=== PATIENT | female | born 1940 | race Caucasian/White ===

== ENCOUNTER 2017-09-01 10:09 | Day surgery (SDC) | payer MEDICARE ==
[2017-08-29 08:42] VITALS: BMI 29.4
[2017-09-01] MEDS ORDERED: Bupivacaine 0.25% HCL 30 ML VIAL ONE (10:50)
[2017-09-01] MEDS ORDERED: Lidocaine 2% w/Epinephrine 1:200K 20 ML VIAL ONE (10:50)
[2017-09-01] MEDS ORDERED: CEFAZOLIN/Water 2 GM/20 ML SYRINGE ONE (11:13)
[2017-09-01] MEDS ORDERED: Fentanyl 100 MCG/2 ML VIAL ONE (11:33)
[2017-09-01] MEDS ORDERED: Lidocaine 1% PF 5 ML VIAL ONE (12:32)
[2017-09-01] MEDS ORDERED: Ondansetron HCl/PF 4 MG/2 ML Vial ONE (12:32)
[2017-09-01] MEDS ORDERED: Propofol 200 MG/20 ML VIAL ONE (12:32)
--- NOTE | 2017-09-01 13:25 | OP ---
DATE OF PROCEDURE: 09/01/2017 PREOPERATIVE DIAGNOSIS: Multiple myeloma. POSTOPERATIVE DIAGNOSIS: Multiple myeloma. PROCEDURE: Tunneled central line subcutaneous port (MediPort, CT injectable). SURGEON: Carmine Pacheco M.D. ANESTHESIA: General. ESTIMATED BLOOD LOSS: Minimal. COMPLICATIONS: None. SPECIMEN: None. FINDINGS: Tip of catheter at atriocaval junction. TECHNIQUE: The patient was taken to the operating room and placed supine on the table. After genera l anesthetic was obtained, bilateral neck and chest were prepped and draped in a sterile fashion. Lo long anesthetic infiltrated over the right internal jugular vein. Intrajugular vein cannulated using a 22-gauge finder needle followed by a Seldinger needle. Wire was passed into the superior vena cava under fluoroscopic guidance. A small vimal was made at the wire entrance site. A separate 3-cm inci bettie was made in the right upper chest. Subcutaneous pocket made below the lower incision. Tubing f or the MediPort tunneled from the inferior to superior incision. Introducer sheath was placed over t he wire into the superior vena cava under fluoroscopic guidance. The dilator and wire were removed. The end of catheter was threaded into the sheath as the sheath is peeled away. The tip of the jorge l ter was at the atriocaval junction. MediPort tubing was cut to fit the MediPort at the lower incisio n and connected to the MediPort. The MediPort was sewn to the chest wall and subcutaneous pocket usi ng Prolene. The MediPort flushes and draws blood without difficulty. It is flushed with heparin flu sh. All incisions were irrigated and closed using 3-0 Vicryl, 4-0 Monocryl, and Dermabond. The lobito ent was en route to recovery in stable condition. All instrument counts, needle counts, and lap coun ts were correct.
--- NOTE | 2017-09-01 14:08 | RAD ---
FRONTAL VIEW CHEST: Date: 09/01/17 INDICATION: MediPort placement. Rule out pneumothorax. FINDINGS: No significant pneumothorax is seen. There is a partially imaged right venous chest port with tip ter minating in SVC region. There is interstitial prominence of each lung. Cardiac silhouette is accentua saulo by portable technique. Vascular calcification and osseous degenerative change present. IMPRESSION: 1. No significant postprocedural pneumothorax is seen. 2. Right chest port in place with tip overlying SVC region. POS: [facility]
== END 2017-09-01 13:58 | disposition home or self-care (01) ==
LOC: SDC 10:09
PROVIDERS: ATTEND Surgery
PROC: 0JH63WZ Insertion of Totally Implantable Vascular Access Device into Chest Subcutaneous Tissue and Fascia, Percutaneous Approach (ICD-10-PCS; principal; 2017-09-01)
DX: C90.00 Multiple myeloma not having achieved remission (principal); C79.51 Secondary malignant neoplasm of bone; M85.80 Other specified disorders of bone density and structure, unspecified site; E78.5 Hyperlipidemia, unspecified; Z90.49 Acquired absence of other specified parts of digestive tract; Z98.51 Tubal ligation status; Z87.01 Personal history of pneumonia (recurrent); Z80.0 Family history of malignant neoplasm of digestive organs
CPT/HCPCS: 36561; 71045; C1788; J1642; J2001; J2405; J2704; J3010; S0020

== ENCOUNTER 2018-10-20 17:45 | Inpatient (IN) | payer MEDICARE ==
[2018-10-20] MEDS ORDERED: Sodium Chloride 0.9% 20 ML ONE (18:20)
[2018-10-20] MEDS: NS 0.9% w/ 20 MEQ KCL 1,000 ML IV SCH ×2 (19:00→19:30)
[2018-10-20] MEDS: Cefepime 2 GM in Sodium Chloride 0.9% 100 ML IVPB SCH (19:29)
[2018-10-20 19:38] VITALS: BMI 28.2
[2018-10-20] MEDS ORDERED: Zolpidem Tartrate 5 MG TAB PO PRN (23:25)
[2018-10-20] MEDS ORDERED: Morphine 2 MG/ML SYRINGE SLOW IVP PRN (23:36)
[2018-10-20] MEDS ORDERED: Fioricet 325/50/40 mg Tablet PO PRN (23:36)
--- NOTE | 2018-10-20 23:45 | PDOC.EVN ---
Event Note - Event Note Event Note: H&P [id number]
[2018-10-20] MEDS: Acetaminophen 325 MG TAB PO PRN (23:50)
[2018-10-21] MEDS: Cefepime 2 GM in Sodium Chloride 0.9% 100 ML IVPB SCH ×3 (03:05→20:47)
--- NOTE | 2018-10-21 03:36 | HP ---
CHIEF COMPLAINT: Fever and chills. HISTORY OF PRESENT ILLNESS: This is a 78-year-old female with past medical history of multiple myeloma, presenting to the hospital after having failed outpatient treatment therapy for severe sepsis. The patient of note was treated with Levaquin for 5 days, did not have any resolution of her symptoms. The patient was complaining of cough, fevers and chills, saw her oncologist, Dr. Jama, who sent her to the hospital for neutropenic fever. The patient at point in time of admission states that she is still having the cough, was admitting to fever as well as some headaches. The patient states that she has some dyspnea on ambulation as well as mild chills. Denies any other associated symptoms or complaints. No other alleviating or aggravating factors noted. The patient was seen and examined in the hospital bed at bedside. No family at bedside. All questions answered. ALLERGIES: NO KNOWN DRUG ALLERGIES. MEDICATIONS: See MAR. PAST MEDICAL HISTORY: Multiple myeloma as well as hypertension. FAMILY HISTORY: Noncontributory. SOCIAL HISTORY: Nondrinker, nonsmoker. REVIEW OF SYSTEMS: All systems reviewed. Pertinent positives in HPI, otherwise negative. PHYSICAL EXAMINATION: VITAL SIGNS: Blood pressure 143/63, O2 saturations 97% on room air, heart rate of 97, temperature of 97.8, respiratory rate of 18. GENERAL: The patient is lying in bed, in no acute discomfort. HEENT: Pupils are equal, round, and reactive to light and accommodation. Extraocular muscles are intact. Oral cavity is moist and pink. NECK: Supple, mobile, nontender. Thyroid appreciated. CARDIOVASCULAR: Regular rate and rhythm. S1 and S2. No murmurs, rubs, or gallops appreciated. PULMONARY: Clear to auscultation bilaterally. No respiratory distress. ABDOMEN: Positive bowel sounds. Soft, nontender, nondistended. EXTREMITIES: 2+ peripheral pulses are noted. Trace edema noted. NEUROLOGIC: Cranial nerves 2 through 12 are intact. No loss of motor function or sensory function. LABORATORY DATA: The patient has not had any recent lab work. ASSESSMENT: 1. Cough, fevers, chills, sepsis. 2. Neutropenic fever. 3. Multiple myeloma. 4. Hypertension. PLAN: At this point in time, we will admit the patient to internal medicine team. Start the patient on cefepime and fluids. The patient apparently had blood work done at her oncologist office who is going to fax the blood work here, has not done so, but per discussion with the doctor who took the admitting report, the patient did have neutropenia as well as fever. So this appears to be likely neutropenic fever. We will start the patient on cefepime, we will also obtain blood cultures. The patient wishes to remain a full code. Continue home blood pressure medication. Norvasc to be held if the blood pressure is less than systolic 120. Pain medications p.r.n., sleep medications p.r.n., lab work in the morning. Resume regular diet. Activity as tolerated with assistance as needed. Case and plan were discussed with the patient at length. She understood and agreed with this plan. Job ID: [id number]
[2018-10-21] MEDS ORDERED: Benzonatate 100 MG CAP PO PRN (04:09)
[2018-10-21] MEDS: Acetaminophen 325 MG TAB PO PRN (04:34)
[2018-10-21] MEDS: NS 0.9% w/ 20 MEQ KCL 1,000 ML IV SCH ×2 (04:39→17:47)
[2018-10-21 05:29] LABS: Anion Gap 10 mmol/L (10-20); BUN (Urea Nitrogen) 13 mg/dL (9.8-20.1); Calc. Creatinine Clearance 63 mL/min (70-130); Calcium 8.4 mg/dL (7.8-10.44); Carbon Dioxide 25 mmol/L (23-31); Chloride 108 mmol/L (98-107); Estimated GFR-MDRD 66; Glucose 91 mg/dL (83-110); Potassium 3.9 mmol/L (3.5-5.1); Sodium 139 mmol/L (136-145)
[2018-10-21 05:34] LABS: Eosinophils 4 % (0-10); Hemoglobin 10.1 g/dL (12.0-16.0); Lymphocytes 42 % (21-51); MDiff Complete? YES; Mean Corpuscular HGB CONC 32.2 g/dL (32.0-36.0); Mean Corpuscular Hemoglobin 31.9 pg (27.0-31.0); Mean Corpuscular Volume 99.1 fL (78.0-98.0); Mean Platelet Volume 8.3 fL (7.4-10.4); Monocytes 21 % (0-10); Neutrophil 25 % (42-75); Platelet Count 138 thou/uL (130-400); RBC Distribution Width 12.7 % (11.5-14.5); Reactive Lymphocytes 8 % (0-10); Red Blood Cell (RBC) Count 3.16 mill/uL (4.20-5.40); Tear Drops SLIGHT = 2-5 cells (100X) (0-1/hpf); White Blood Cell (WBC) Count 1.1 thou/uL (4.8-10.8)
[2018-10-21] MEDS ORDERED: Sodium Chloride 0.65% Nasal 44 ML BOT EA NARE PRN (07:00)
[2018-10-21] MEDS ORDERED: Loperamide HCl 2 MG CAP PO PRN (07:00)
[2018-10-21] MEDS ORDERED: Ondansetron ODT 4 MG TAB PO PRN (07:00)
[2018-10-21] MEDS ORDERED: Artificial Tears 18 DROP/0.9 ML EA EYE PRN (07:00)
[2018-10-21] MEDS ORDERED: Loratadine 10 MG TAB PO PRN (07:00)
[2018-10-21] MEDS ORDERED: Calcium Carbonate 500 MG ChewTAB PO PRN (07:00)
[2018-10-21] MEDS ORDERED: HYDROcodone/Acetaminophen 5/325 mg Tablet PO PRN (07:00)
[2018-10-21] MEDS ORDERED: Cepastat Lozenges 1 LOZ PO PRN (07:00)
[2018-10-21] MEDS ORDERED: Acetaminophen 500 MG TAB PO PRN (07:00)
[2018-10-21] MEDS ORDERED: Eucerin (Mineral Oil/Petrolatum,White) 30 gm Jar TOP PRN (07:00)
[2018-10-21] MEDS ORDERED: Bisacodyl 5 MG TAB PO PRN (07:00)
[2018-10-21] MEDS: Aspirin 81 mg Enteric Coated Tablet PO SCH (10:07)
[2018-10-21] MEDS: Famotidine 20 MG TAB PO SCH ×2 (10:07→20:48)
[2018-10-21] MEDS: Enoxaparin Sodium 40 MG/0.4 ML SYRINGE SC SCH (10:08)
[2018-10-21] MEDS: Amlodipine 5 MG TAB PO SCH (10:11)
--- NOTE | 2018-10-21 10:32 | RAD ---
PA AND LATERAL CHEST: HISTORY: Cough and fever. COMPARISON: 09/01/2017 FINDINGS: The heart size is normal. The aorta is tortuous. A right-sided Port-A-Cath is present. No focal ar eas of consolidation, pneumothoraces, or pleural effusions are seen. There are degenerative changes in the spine. IMPRESSION: No acute process. POS: [facility]
--- NOTE | 2018-10-21 10:43 | PDOC.PN ---
- Subjective Encounter Start Date: 10/21/18 Encounter Start Time: 07:20 -: old records requested/rev pt has cough, wheezing, dyspnea Patient seen and examined. No overnight events - Objective MAR Reviewed: Yes Vital Signs & Weight: Vital Signs (12 hours) Temp Pulse Resp BP BP Pulse Ox 10/21/18 10:14 97.3 F L 69 20 135/60 98 10/21/18 10:11 69 135/60 10/21/18 03:18 97.7 F 74 16 159/68 H 94 L 10/20/18 23:34 98.3 F 96 16 143/63 H 93 L 10/20/18 23:09 92 18 93 L Weight Weight 154 lb 5 oz Result Diagrams: 10/21/18 05:00 10/21/18 05:00 Radiology Reviewed by me: Yes (chest xray reviewed) Phys Exam - Physical Examination Constitutional: NAD HEENT: PERRLA, moist MMs, sclera anicteric Neck: no JVD, supple Respiratory: no rales, wheezing present Cardiovascular: RRR, no significant murmur, no rub Gastrointestinal: soft, non-tender, no distention, positive bowel sounds Musculoskeletal: no edema, pulses present Neurological: non-focal, normal sensation, moves all 4 limbs Lymphatic: no nodes Psychiatric: normal affect, A&O x 3 Skin: no rash, normal turgor Dx/Plan (1) Acute bronchitis Code(s): J20.9 - ACUTE BRONCHITIS, UNSPECIFIED Status: Acute (2) Neutropenic fever Code(s): D70.9 - NEUTROPENIA, UNSPECIFIED; R50.81 - FEVER PRESENTING WITH CONDITIONS CLASSIFIED ELSEWHERE Status: Acute (3) Hypertension Code(s): I10 - ESSENTIAL (PRIMARY) HYPERTENSION Status: Chronic (4) Multiple myeloma Code(s): C90.00 - MULTIPLE MYELOMA NOT HAVING ACHIEVED REMISSION Status: Chronic - Plan cont current plan of care, continue antibiotics, respiratory therapy * add pulmicort nebs bid * increase duoneb * add mucinex * continue cefepime * continue IVF * medication reviewed as below * symptomatic treatment. * check respi viral panel Review of Systems - Review of Systems Constitutional: negative: fever, chills, sweats, weakness, malaise, other Eyes: negative: Pain, Vision Change, Conjunctivae Inflammation, Eyelid Inflammation, Redness, Other ENT: negative: Ear Pain, Ear Discharge, Nose Pain, Nose Discharge, Nose Congestion, Mouth Pain, Mouth Swelling, Throat Pain, Throat Swelling, Other Respiratory: Cough, Shortness of Breath, Wheezing. negative: Dry, Hemoptysis, SOB with Excertion, Pleuritic Pain, Sputum Cardiovascular: negative: chest pain, palpitations, orthopnea, paroxysmal nocturnal dyspnea, edema, light headedness, other Gastrointestinal: negative: Nausea, Vomiting, Abdominal Pain, Diarrhea, Constipation, Melena, Hematochezia, Other Genitourinary: negative: Dysuria, Frequency, Incontinence, Hematuria, Retention , Other Musculoskeletal: negative: Neck Pain, Shoulder Pain, Arm Pain, Back Pain, Hand Pain, Leg Pain, Foot Pain, Other Skin: negative: Rash, Lesions, [place], Bruising, Other - Medications/Allergies Allergies/Adverse Reactions: Allergies Allergy/AdvReac Type Severity Reaction Status Date / Time No Known Allergies Allergy Verified 10/20/18 20:39 Medications: Current Medications Acetaminophen (Tylenol) 500 mg PO Q6H PRN PRN Reason: Mild Pain (1-3) Acetaminophen/Butalbital/Caffeine (Fioricet) 1 tab PO Q4H PRN PRN Reason: Headache Stop: 10/25/18 23:37 Last Admin: 10/21/18 00:04 Dose: 1 tab Hydrocodone Bitart/Acetaminophen ([place] 5/325) 1 tab PO Q4H PRN PRN Reason: Moderate Pain (4-6) Albuterol/Ipratropium (Duoneb) 3 ml NEB [id number] PRN PRN Reason: SOB &/or Wheezing Albuterol/Ipratropium (Duoneb) 3 ml NEB [id number] [facility] Amlodipine Besylate (Norvasc) 5 mg PO DAILY [facility] Last Admin: 10/21/18 10:11 Dose: 5 mg Artificial Tears (Tears Naturale) 2 drop EA EYE PRN PRN PRN Reason: Dry Eyes Aspirin (Ecotrin) 81 mg PO DAILY [facility] Last Admin: 10/21/18 10:07 Dose: 81 mg Benzonatate (Tessalon) 100 mg PO Q8H PRN PRN Reason: Cough Last Admin: 10/21/18 04:32 Dose: 100 mg Bisacodyl (Dulcolax) 10 mg PO DAILYPRN PRN PRN Reason: Constipation Budesonide (Pulmicort Neb Solution) 0.5 mg INH BID-RT [facility] Calcium Carbonate (Tums) 1,000 mg PO Q4H PRN PRN Reason: Heartburn or Indigestion Enoxaparin Sodium (Lovenox) 40 mg SC 0900 [facility] Last Admin: 10/21/18 10:08 Dose: 40 mg Famotidine (Pepcid) 20 mg PO BID [facility] Last Admin: 10/21/18 10:07 Dose: 20 mg Guaifenesin (Robitussin Sf) 200 mg PO Q4H PRN PRN Reason: Cough Guaifenesin (Mucinex) 600 mg PO Q12HR [facility] Hydralazine HCl (Apresoline) 10 mg SLOW IVP Q4H PRN PRN Reason: SBP > 180 and HR < 70 Potassium Chloride/Sodium Chloride (Ns 0.9% W/ 20 Meq Kcl) 1,000 mls @ 100 mls/ hr IV .Q10H [facility] Last Admin: 10/21/18 04:39 Dose: 1,000 mls Cefepime HCl 2 gm/ Sodium (Chloride) 100 mls @ 200 mls/hr IVPB 0400,1200,2000 [facility] Last Admin: 10/21/18 03:05 Dose: 100 mls Loperamide HCl (Imodium) 2 mg PO PRN PRN PRN Reason: Diarrhea/Loose Stools Loratadine (Claritin) 10 mg PO DAILYPRN PRN PRN Reason: Sinus Symptoms Mineral Oil/White Petrolatum (Eucerin Cream) 0 gm TOP BIDPRN PRN PRN Reason: Dry Skin Morphine Sulfate (Morphine) 2 mg SLOW IVP Q4H PRN PRN Reason: Pain Ondansetron HCl (Zofran) 4 mg IVP Q6H PRN PRN Reason: Nausea/Vomiting Ondansetron HCl (Zofran Odt) 4 mg PO Q6H PRN PRN Reason: Nausea/Vomiting Sodium Chloride (Flush - Normal Saline) 10 ml IVF Q12HR PRN PRN Reason: Saline Flush Sodium Chloride ([place] Nasal [place] 0.65%) 0 ml EA NARE QIDPRN PRN PRN Reason: Nasal Congestion Throat Lozenges (Cepastat Lozenges) 1 dennise PO Q2H PRN PRN Reason: Sore Throat Zolpidem Tartrate (Ambien) 5 mg PO HSPRN PRN PRN Reason: Insomnia
--- NOTE | 2018-10-21 11:41 | CON ---
DATE OF CONSULTATION: REASON FOR CONSULT: Neutropenic fever. HISTORY OF PRESENT ILLNESS: Ms. Da Silva is a pleasant 78-year-old female with a history of multiple myeloma, recently started on Darzalex chemotherapy. She complains of a 5-to 6-day history of cough, fever, and chills. She was started on Levaquin 750 mg orally at the end of last week. She returned for a visit to see Dr. Jama yesterday in the clinic. She continued to have productive cough, sore throat, and intermittent fever. She was wheezing on exam. She had a poor oral intake. She had lost 10 pounds in the past week. Patient has chronic neutropenia with a baseline WBC around 3.0, ANC 0.5. Her CBC at the office showed WBC 1.3, ANC 0.5. She was admitted for IV fluids and IV antibiotics. Currently, she complains of cough and weakness. Denies any chest pain. No GI complaints other than poor appetite. She has been started on cefepime and IV fluids. PAST MEDICAL HISTORY: IgG kappa multiple myeloma. PAST SURGICAL HISTORY: 1. Tubal ligation. 2. Appendectomy. ALLERGIES: NO KNOWN DRUG ALLERGIES. HOME MEDICATIONS: 1. Amlodipine 5 mg daily. 2. Aspirin 81 mg daily. 3. Pomalyst 3 mg daily. FAMILY HISTORY: Noncontributory. SOCIAL HISTORY: , has 3 children. Lives with her spouse. No alcohol, tobacco, or illicit drug use. REVIEW OF SYSTEMS: Ten-point review of systems is negative except for noted in HPI. PHYSICAL EXAMINATION: VITAL SIGNS: Temperature 97.7, pulse is 74, respiratory rate 16, BP is 159/68, and she is 94% on room air. GENERAL: Well-developed, well-nourished female, looks acutely ill. HEENT: Normocephalic and atraumatic. Pupils are equal and reactive to light. NECK: Supple. CARDIOVASCULAR: Regular rate and rhythm. LUNGS: She has wheezes and rhonchi throughout. ABDOMEN: Soft and nontender. Bowel sounds are positive. EXTREMITIES: No clubbing, cyanosis, or edema. SKIN: No rash. HEMATOLOGICAL: No petechiae or purpura. NEUROLOGIC: Nonfocal. PSYCH: The patient is alert, oriented and appropriate. PERTINENT LABORATORY AND X-RAYS: Current WBCs 1.1, hemoglobin 10.1, hematocrit 31.3, platelet count is 138,000, 25% neutrophils, 40% lymphocytes. Sodium is 139, potassium 3.9, chloride 108, CO2 is 25, BUN is 13, creatinine 0.84, and calcium is 8.4. ASSESSMENT: 1. Neutropenic fever. 2. Multiple myeloma on Darzalex and Pomalyst chemo. 3. Chronic leukopenia from #2. DISCUSSION: The patient has been started on IV antibiotics and IV fluids. No chest x-ray has been done. We will have that ordered for this morning. Her oxygen saturation is 93%. We will continue p.r.n. nebs and O2. Hopefully, she will improve in the next 24 hours. We will follow her hospital course closely. Thank you for the consult. Job ID: [id number] BERNARDA
[2018-10-21] MEDS: Diabetic Tussin 200 MG/10 ML UDCUP PO PRN ×2 (13:29→17:46)
[2018-10-21] MEDS: Budesonide 0.5 MG/2 ML NEB INH SCH (18:26)
[2018-10-21] MEDS: guaiFENesin ER 600 MG TAB PO SCH (20:56)
[2018-10-22] MEDS: NS 0.9% w/ 20 MEQ KCL 1,000 ML IV SCH (04:31)
[2018-10-22] MEDS: Ondansetron PF 4 MG/2 ML Vial IVP PRN ×2 (04:31→10:56)
[2018-10-22] MEDS: hydrALAZINE 20 MG/ML VIAL SLOW IVP PRN (04:32)
[2018-10-22] MEDS: Cefepime 2 GM in Sodium Chloride 0.9% 100 ML IVPB SCH ×3 (04:34→20:28)
[2018-10-22 05:14] LABS: ALT (SGPT) 13 U/L (8-55); AST (SGOT) 18 U/L (5-34); Albumin 3.4 g/dL (3.4-4.8); Alkaline Phosphatase 57 U/L (40-150); Anion Gap 10 mmol/L (10-20); BUN (Urea Nitrogen) 8 mg/dL (9.8-20.1); Bilirubin, Total 0.3 mg/dL (0.2-1.2); Calc. Creatinine Clearance 70 mL/min (70-130); Calcium 8.4 mg/dL (7.8-10.44); Carbon Dioxide 26 mmol/L (23-31); Chloride 109 mmol/L (98-107); Estimated GFR-MDRD 74; Globulin 1.8 g/dL (2.4-3.5); Glucose 92 mg/dL (83-110); Protein, Total 5.2 g/dL (6.0-8.3); Sodium 141 mmol/L (136-145)
[2018-10-22 05:27] LABS: Hemoglobin 9.8 g/dL (12.0-16.0); Mean Corpuscular HGB CONC 32.5 g/dL (32.0-36.0); Mean Corpuscular Volume 98.6 fL (78.0-98.0); Mean Platelet Volume 8.3 fL (7.4-10.4); Platelet Count 126 thou/uL (130-400); RBC Distribution Width 12.7 % (11.5-14.5); Red Blood Cell (RBC) Count 3.07 mill/uL (4.20-5.40)
[2018-10-22 05:28] LABS: Band 7 % (5-11); Eosinophils 5 % (0-10); Lymphocytes 46 % (21-51); MDiff Complete? YES; Monocytes 16 % (0-10); Neutrophil 26 % (42-75)
[2018-10-22] MEDS: Budesonide 0.5 MG/2 ML NEB INH SCH ×2 (06:49→19:40)
[2018-10-22] MEDS: Amlodipine 5 MG TAB PO SCH ×2 (09:40→20:28)
[2018-10-22] MEDS: Famotidine 20 MG TAB PO SCH ×2 (09:40→20:28)
[2018-10-22] MEDS: Aspirin 81 mg Enteric Coated Tablet PO SCH (09:40)
[2018-10-22] MEDS: Saccharomyces boulardii 250 MG CAP PO SCH (09:40)
[2018-10-22] MEDS: Enoxaparin Sodium 40 MG/0.4 ML SYRINGE SC SCH (09:41)
[2018-10-22] MEDS: Doxycycline 100 MG CAP PO SCH ×2 (09:41→20:28)
[2018-10-22] MEDS: Oseltamivir 75 MG CAP PO SCH ×2 (09:42→20:29)
[2018-10-22] MEDS: guaiFENesin ER 600 MG TAB PO SCH ×2 (09:42→20:29)
--- NOTE | 2018-10-22 09:42 | PDOC.PN ---
- Subjective Encounter Start Date: 10/22/18 Encounter Start Time: 07:30 pt has cough, and wheezing, no fever Patient seen and examined. No overnight events - Objective MAR Reviewed: Yes Vital Signs & Weight: Vital Signs (12 hours) Temp Pulse Resp BP BP BP Pulse Ox 10/22/18 07:59 97 10/22/18 04:32 78 197/86 H 10/22/18 04:00 97.5 F L 75 16 197/86 H 94 L 10/21/18 23:32 98.3 F 82 16 185/77 H 96 Weight Admit Weight 154 lb 5 oz Weight 154 lb 5 oz I&O: 10/21/18 10/22/18 10/23/18 06:59 06:59 06:59 Intake Total 2100 Balance 2100 Result Diagrams: 10/22/18 04:40 10/22/18 04:40 Phys Exam - Physical Examination Constitutional: NAD HEENT: PERRLA, moist MMs, sclera anicteric Neck: no JVD, supple Respiratory: no rales, wheezing present Cardiovascular: RRR, no significant murmur, no rub Gastrointestinal: soft, non-tender, no distention, positive bowel sounds Musculoskeletal: no edema, pulses present Neurological: non-focal, normal sensation Lymphatic: no nodes Psychiatric: normal affect Skin: no rash, normal turgor Dx/Plan (1) Acute bronchitis Code(s): J20.9 - ACUTE BRONCHITIS, UNSPECIFIED Status: Acute (2) Neutropenic fever Code(s): D70.9 - NEUTROPENIA, UNSPECIFIED; R50.81 - FEVER PRESENTING WITH CONDITIONS CLASSIFIED ELSEWHERE Status: Acute (3) Hypertension Code(s): I10 - ESSENTIAL (PRIMARY) HYPERTENSION Status: Chronic (4) Multiple myeloma Code(s): C90.00 - MULTIPLE MYELOMA NOT HAVING ACHIEVED REMISSION Status: Chronic (5) Influenza A Code(s): J10.1 - FLU DUE TO OTH IDENT INFLUENZA VIRUS W OTH RESP MANIFEST Status: Acute (6) Pancytopenia due to chemotherapy Code(s): D61.810 - ANTINEOPLASTIC CHEMOTHERAPY INDUCED PANCYTOPENIA Status: Acute - Plan cont current plan of care, continue antibiotics, respiratory therapy * change amlodipine 5 mg po bid * medication reviewed as below * symptomatic treatment * add tamiflu * add doxycycline * add solumedrol * repeat labs tomorrow * continue respiratory therapy. Review of Systems - Review of Systems Constitutional: weakness. negative: fever, chills, sweats, malaise, other Respiratory: Cough, Shortness of Breath, Wheezing. negative: Dry, Hemoptysis, SOB with Excertion, Pleuritic Pain, Sputum Cardiovascular: negative: chest pain, palpitations, orthopnea, paroxysmal nocturnal dyspnea, edema, light headedness, other Gastrointestinal: negative: Nausea, Vomiting, Abdominal Pain, Diarrhea, Constipation, Melena, Hematochezia, Other Genitourinary: negative: Dysuria, Frequency, Incontinence, Hematuria, Retention , Other Musculoskeletal: negative: Neck Pain, Shoulder Pain, Arm Pain, Back Pain, Hand Pain, Leg Pain, Foot Pain, Other - Medications/Allergies Allergies/Adverse Reactions: Allergies Allergy/AdvReac Type Severity Reaction Status Date / Time No Known Allergies Allergy Verified 10/20/18 20:39 Medications: Current Medications Acetaminophen (Tylenol) 500 mg PO Q6H PRN PRN Reason: Mild Pain (1-3) Acetaminophen/Butalbital/Caffeine (Fioricet) 1 tab PO Q4H PRN PRN Reason: Headache Stop: 10/25/18 23:37 Last Admin: 10/21/18 00:04 Dose: 1 tab Hydrocodone Bitart/Acetaminophen ([place] 5/325) 1 tab PO Q4H PRN PRN Reason: Moderate Pain (4-6) Last Admin: 10/21/18 23:42 Dose: 1 tab Albuterol/Ipratropium (Duoneb) 3 ml NEB [id number] PRN PRN Reason: SOB &/or Wheezing Albuterol/Ipratropium (Duoneb) 3 ml NEB [id number] [facility] Last Admin: 10/22/18 06:49 Dose: Not Given Amlodipine Besylate (Norvasc) 5 mg PO DAILY [facility] Last Admin: 10/21/18 10:11 Dose: 5 mg Artificial Tears (Tears Naturale) 2 drop EA EYE PRN PRN PRN Reason: Dry Eyes Aspirin (Ecotrin) 81 mg PO DAILY [facility] Last Admin: 10/21/18 10:07 Dose: 81 mg Benzonatate (Tessalon) 100 mg PO Q8H PRN PRN Reason: Cough Last Admin: 10/21/18 04:32 Dose: 100 mg Bisacodyl (Dulcolax) 10 mg PO DAILYPRN PRN PRN Reason: Constipation Budesonide (Pulmicort Neb Solution) 0.5 mg INH BID-RT [facility] Last Admin: 10/22/18 06:49 Dose: Not Given Calcium Carbonate (Tums) 1,000 mg PO Q4H PRN PRN Reason: Heartburn or Indigestion Doxycycline Hyclate (Vibramycin) 100 mg PO BID [facility] Enoxaparin Sodium (Lovenox) 40 mg SC 0900 [facility] Last Admin: 10/21/18 10:08 Dose: 40 mg Famotidine (Pepcid) 20 mg PO BID [facility] Last Admin: 10/21/18 20:48 Dose: 20 mg Guaifenesin (Robitussin Sf) 200 mg PO Q4H PRN PRN Reason: Cough Last Admin: 10/21/18 17:46 Dose: 200 mg Guaifenesin (Mucinex) 600 mg PO Q12HR [facility] Last Admin: 10/21/18 20:56 Dose: 600 mg Hydralazine HCl (Apresoline) 10 mg SLOW IVP Q4H PRN PRN Reason: SBP > 180 and HR < 70 Last Admin: 10/22/18 04:32 Dose: 10 mg Potassium Chloride/Sodium Chloride (Ns 0.9% W/ 20 Meq Kcl) 1,000 mls @ 100 mls/ hr IV .Q10H [facility] Last Admin: 10/22/18 04:31 Dose: 1,000 mls Cefepime HCl 2 gm/ Sodium (Chloride) 100 mls @ 200 mls/hr IVPB 0400,1200,2000 [facility] Last Admin: 10/22/18 04:34 Dose: 100 mls Loperamide HCl (Imodium) 2 mg PO PRN PRN PRN Reason: Diarrhea/Loose Stools Loratadine (Claritin) 10 mg PO DAILYPRN PRN PRN Reason: Sinus Symptoms Mineral Oil/White Petrolatum (Eucerin Cream) 0 gm TOP BIDPRN PRN PRN Reason: Dry Skin Morphine Sulfate (Morphine) 2 mg SLOW IVP Q4H PRN PRN Reason: Pain Ondansetron HCl (Zofran) 4 mg IVP Q6H PRN PRN Reason: Nausea/Vomiting Last Admin: 10/22/18 04:31 Dose: 4 mg Ondansetron HCl (Zofran Odt) 4 mg PO Q6H PRN PRN Reason: Nausea/Vomiting Oseltamivir Phosphate (Tamiflu) 75 mg PO BID [facility] Stop: 10/26/18 21:01 Saccharomyces Boulardii (Florastor) 250 mg PO DAILY [facility] Sodium Chloride (Flush - Normal Saline) 10 ml IVF Q12HR PRN PRN Reason: Saline Flush Sodium Chloride ([place] Nasal [place] 0.65%) 0 ml EA NARE QIDPRN PRN PRN Reason: Nasal Congestion Throat Lozenges (Cepastat Lozenges) 1 dennise PO Q2H PRN PRN Reason: Sore Throat Zolpidem Tartrate (Ambien) 5 mg PO HSPRN PRN PRN Reason: Insomnia Last Admin: 10/21/18 23:42 Dose: 5 mg
[2018-10-22] MEDS ORDERED: Promethazine HCl 25 MG/ML VIAL SLOW IVP PRN (11:06)
[2018-10-22] MEDS: methylPREDNISolone Sod Succ 40 MG VIAL IVP SCH ×2 (13:13→21:07)
--- NOTE | 2018-10-22 13:31 | PQF ---
CLINICAL DOCUMENTATION IMPROVEMENT CLARIFICATION FORM: ICD-10 Updated PLEASE DO AN ADDENDUM TO THE PROGRESS NOTE WITH ANY DOCUMENTATION UPDATES OR ADDITIONS AND CARRY THROUGH TO DC SUMMARY. THANK YOU. DATE: 10/22/18 ATTN : DR. TORRES Please exercise your independent, professional judgment in responding to the clarification form. Clinical indicators are provided on the bottom of this form for your review Please check appropriate box(s) to clarify if the following diagnosis has been ruled in or ruled out: SEPSIS [ x] Ruled in diagnosis [ x ] Continue to treat [ ] Resolved [ ] Ruled out diagnosis [ ] Other diagnosis [ ] Unable to determine In addition, please specify: Present on Admission (POA): [ x ] Yes [ ] No [ ] Unable to determine For continuity of documentation, please document condition throughout progress notes and discharge summary. Thank You. CLINICAL INDICATORS - SIGNS / SYMPTOMS / LABS H&P: "PRESENTING TO THE HOSPITAL AFTER HAVING FAILED OUTPATIENT TREATMENT THERAPY FOR SEVERE SEPSIS." "THE PATIENT WAS COMPLAINING OF COUGH, FEVERS, AND CHILLS..." ASSESSMENT: "SEPSIS" WBC 1.0 RISKS: FEVERS CHILLS MULTIPLE MYELOMA TREATMENT: IV CEFEPIME (10/20--PRESENT) VIBRAMYCIN (STARTED 10/22) TAMIFLU (STARTED 10/22) BLOOD CULTURES (This form is maintained as a part of the permanent medical record) 2014 [employer]. All Rights Reserved [email or web address] Office: [phone] [facility]
[2018-10-23] MEDS: hydrALAZINE 20 MG/ML VIAL SLOW IVP PRN (00:42)
[2018-10-23] MEDS: Cefepime 2 GM in Sodium Chloride 0.9% 100 ML IVPB SCH ×3 (04:58→20:48)
[2018-10-23] MEDS: methylPREDNISolone Sod Succ 40 MG VIAL IVP SCH ×3 (05:04→21:28)
[2018-10-23] MEDS: Diabetic Tussin 200 MG/10 ML UDCUP PO PRN ×2 (05:51→21:28)
[2018-10-23] MEDS: Budesonide 0.5 MG/2 ML NEB INH SCH ×2 (07:06→19:48)
[2018-10-23] MEDS: Enoxaparin Sodium 40 MG/0.4 ML SYRINGE SC SCH (09:48)
[2018-10-23] MEDS: Amlodipine 5 MG TAB PO SCH ×2 (09:48→20:48)
[2018-10-23] MEDS: Doxycycline 100 MG CAP PO SCH ×2 (09:49→20:49)
[2018-10-23] MEDS: guaiFENesin ER 600 MG TAB PO SCH ×2 (09:49→20:49)
[2018-10-23] MEDS: Saccharomyces boulardii 250 MG CAP PO SCH (09:49)
[2018-10-23] MEDS: Aspirin 81 mg Enteric Coated Tablet PO SCH (09:50)
[2018-10-23] MEDS: Famotidine 20 MG TAB PO SCH ×2 (09:50→20:48)
[2018-10-23] MEDS: Oseltamivir 75 MG CAP PO SCH ×2 (09:50→20:50)
[2018-10-23] MEDS ORDERED: Lisinopril 10 MG TAB PO SCH (10:00)
--- NOTE | 2018-10-23 10:01 | PDOC.PN ---
- Subjective Encounter Start Date: 10/23/18 Encounter Start Time: 07:45 Patient seen and examined. No new complaints. No overnight events pt still has cough and wheezing, she has headache and her BP is elevated - Objective MAR Reviewed: Yes Vital Signs & Weight: Vital Signs (12 hours) Temp Pulse Resp BP BP Pulse Ox 10/23/18 09:54 97.6 F 88 18 170/72 H 96 10/23/18 09:48 88 170/72 H 10/23/18 07:03 85 20 90 L 10/23/18 04:41 97.6 F 105 H 18 160/61 H 95 10/23/18 00:42 89 191/86 H 10/23/18 00:34 97.8 F 89 18 191/86 H 96 Weight Admit Weight 154 lb 5 oz Weight 154 lb 5 oz I&O: 10/22/18 10/23/18 10/24/18 06:59 06:59 06:59 Intake Total 2100 1800 Balance 2100 1800 Result Diagrams: 10/22/18 04:40 10/22/18 04:40 Phys Exam - Physical Examination Constitutional: NAD HEENT: PERRLA, moist MMs, sclera anicteric Neck: no JVD, supple Respiratory: no rales, wheezing present Cardiovascular: RRR, no significant murmur, no rub Gastrointestinal: soft, non-tender, no distention, positive bowel sounds Musculoskeletal: no edema, pulses present Neurological: non-focal, normal sensation, moves all 4 limbs Lymphatic: no nodes Psychiatric: normal affect, A&O x 3 Skin: no rash, normal turgor Dx/Plan (1) Acute bronchitis Code(s): J20.9 - ACUTE BRONCHITIS, UNSPECIFIED Status: Acute (2) Neutropenic fever Code(s): D70.9 - NEUTROPENIA, UNSPECIFIED; R50.81 - FEVER PRESENTING WITH CONDITIONS CLASSIFIED ELSEWHERE Status: Acute (3) Hypertension Code(s): I10 - ESSENTIAL (PRIMARY) HYPERTENSION Status: Chronic (4) Multiple myeloma Code(s): C90.00 - MULTIPLE MYELOMA NOT HAVING ACHIEVED REMISSION Status: Chronic (5) Influenza A Code(s): J10.1 - FLU DUE TO OTH IDENT INFLUENZA VIRUS W OTH RESP MANIFEST Status: Acute (6) Pancytopenia due to chemotherapy Code(s): D61.810 - ANTINEOPLASTIC CHEMOTHERAPY INDUCED PANCYTOPENIA Status: Acute - Plan cont current plan of care, continue antibiotics, respiratory therapy * recheck labs today * continue cefepime and doxycycline * medication reviewed as below * symptomatic treatment * add lisinopril for HTN. Review of Systems - Review of Systems ENT: negative: Ear Pain, Ear Discharge, Nose Pain, Nose Discharge, Nose Congestion, Mouth Pain, Mouth Swelling, Throat Pain, Throat Swelling, Other Respiratory: Cough, Wheezing. negative: Dry, Shortness of Breath, Hemoptysis, SOB with Excertion, Pleuritic Pain, Sputum Cardiovascular: negative: chest pain, palpitations, orthopnea, paroxysmal nocturnal dyspnea, edema, light headedness, other Gastrointestinal: negative: Nausea, Vomiting, Abdominal Pain, Diarrhea, Constipation, Melena, Hematochezia, Other Genitourinary: negative: Dysuria, Frequency, Incontinence, Hematuria, Retention , Other Musculoskeletal: negative: Neck Pain, Shoulder Pain, Arm Pain, Back Pain, Hand Pain, Leg Pain, Foot Pain, Other Skin: negative: Rash, Lesions, [place], Bruising, Other - Medications/Allergies Allergies/Adverse Reactions: Allergies Allergy/AdvReac Type Severity Reaction Status Date / Time No Known Allergies Allergy Verified 10/20/18 20:39 Medications: Current Medications Acetaminophen (Tylenol) 500 mg PO Q6H PRN PRN Reason: Mild Pain (1-3) Acetaminophen/Butalbital/Caffeine (Fioricet) 1 tab PO Q4H PRN PRN Reason: Headache Stop: 10/25/18 23:37 Last Admin: 10/21/18 00:04 Dose: 1 tab Hydrocodone Bitart/Acetaminophen ([place] 5/325) 1 tab PO Q4H PRN PRN Reason: Moderate Pain (4-6) Last Admin: 10/21/18 23:42 Dose: 1 tab Albuterol/Ipratropium (Duoneb) 3 ml NEB [id number] PRN PRN Reason: SOB &/or Wheezing Last Admin: 10/22/18 10:54 Dose: 3 ml Albuterol/Ipratropium (Duoneb) 3 ml NEB [id number] VISHNU Last Admin: 10/23/18 07:03 Dose: 3 ml Amlodipine Besylate (Norvasc) 5 mg PO BID VISHNU Last Admin: 10/23/18 09:48 Dose: 5 mg Artificial Tears (Tears Naturale) 2 drop EA EYE PRN PRN PRN Reason: Dry Eyes Aspirin (Ecotrin) 81 mg PO DAILY ON LICENSE OF [facility] Last Admin: 10/23/18 09:50 Dose: 81 mg Benzonatate (Tessalon) 100 mg PO Q8H PRN PRN Reason: Cough Last Admin: 10/21/18 04:32 Dose: 100 mg Bisacodyl (Dulcolax) 10 mg PO DAILYPRN PRN PRN Reason: Constipation Budesonide (Pulmicort Neb Solution) 0.5 mg INH BID-RT ON LICENSE OF [facility] Last Admin: 10/23/18 07:06 Dose: 0.5 mg Calcium Carbonate (Tums) 1,000 mg PO Q4H PRN PRN Reason: Heartburn or Indigestion Doxycycline Hyclate (Vibramycin) 100 mg PO BID ON LICENSE OF [facility] Last Admin: 10/23/18 09:49 Dose: 100 mg Enoxaparin Sodium (Lovenox) 40 mg SC 0900 ON LICENSE OF [facility] Last Admin: 10/23/18 09:48 Dose: 40 mg Famotidine (Pepcid) 20 mg PO BID ON LICENSE OF [facility] Last Admin: 10/23/18 09:50 Dose: 20 mg Guaifenesin (Robitussin Sf) 200 mg PO Q4H PRN PRN Reason: Cough Last Admin: 10/23/18 05:51 Dose: 200 mg Guaifenesin (Mucinex) 600 mg PO Q12HR ON LICENSE OF [facility] Last Admin: 10/23/18 09:49 Dose: 600 mg Hydralazine HCl (Apresoline) 10 mg SLOW IVP Q4H PRN PRN Reason: SBP > 180 and HR < 70 Last Admin: 10/23/18 00:42 Dose: 10 mg Cefepime HCl 2 gm/ Sodium (Chloride) 100 mls @ 200 mls/hr IVPB 0400,1200,2000 ON LICENSE OF [facility] Last Admin: 10/23/18 04:58 Dose: 100 mls Lisinopril (Zestril) 10 mg PO ONE ON LICENSE OF [facility] Lisinopril (Zestril) 10 mg PO DAILY ON LICENSE OF [facility] Loperamide HCl (Imodium) 2 mg PO PRN PRN PRN Reason: Diarrhea/Loose Stools Loratadine (Claritin) 10 mg PO DAILYPRN PRN PRN Reason: Sinus Symptoms Methylprednisolone Sodium Succinate (Solu-Medrol) 20 mg IVP Q8HR ON LICENSE OF [facility] Last Admin: 10/23/18 05:04 Dose: 20 mg Mineral Oil/White Petrolatum (Eucerin Cream) 0 gm TOP BIDPRN PRN PRN Reason: Dry Skin Morphine Sulfate (Morphine) 2 mg SLOW IVP Q4H PRN PRN Reason: Pain Ondansetron HCl (Zofran) 4 mg IVP Q6H PRN PRN Reason: Nausea/Vomiting Last Admin: 10/22/18 10:56 Dose: 4 mg Ondansetron HCl (Zofran Odt) 4 mg PO Q6H PRN PRN Reason: Nausea/Vomiting Oseltamivir Phosphate (Tamiflu) 75 mg PO BID ON LICENSE OF [facility] Stop: 10/26/18 21:01 Last Admin: 10/23/18 09:50 Dose: 75 mg Promethazine HCl (Phenergan) 12.5 mg SLOW IVP Q6H PRN PRN Reason: Nausea Saccharomyces Boulardii (Florastor) 250 mg PO DAILY ON LICENSE OF [facility] Last Admin: 10/23/18 09:49 Dose: 250 mg Sodium Chloride (Flush - Normal Saline) 10 ml IVF Q12HR PRN PRN Reason: Saline Flush Last Admin: 10/23/18 09:50 Dose: 10 ml Sodium Chloride ([place] Nasal [place] 0.65%) 0 ml EA NARE QIDPRN PRN PRN Reason: Nasal Congestion Throat Lozenges (Cepastat Lozenges) 1 dennise PO Q2H PRN PRN Reason: Sore Throat Zolpidem Tartrate (Ambien) 5 mg PO HSPRN PRN PRN Reason: Insomnia Last Admin: 10/21/18 23:42 Dose: 5 mg
[2018-10-23 10:20] LABS: #Lymphocytes 0.2 thou/uL (1.20-3.40); #Monocytes 0.1 thou/uL (0.11-0.59); #Neutrophils 0.9 thou/uL (1.40-6.50); %Eosinophils 0.4 % (0.0-10.0); %Lymphocytes 18.8 % (21.0-51.0); %Neutrophils 71.7 % (42.0-75.0); Hemoglobin 10.8 g/dL (12.0-16.0); Mean Corpuscular HGB CONC 33.4 g/dL (32.0-36.0); Mean Corpuscular Hemoglobin 31.7 pg (27.0-31.0); Mean Corpuscular Volume 94.9 fL (78.0-98.0); Mean Platelet Volume 8.4 fL (7.4-10.4); Platelet Count 149 thou/uL (130-400); RBC Distribution Width 12.7 % (11.5-14.5); Red Blood Cell (RBC) Count 3.39 mill/uL (4.20-5.40); White Blood Cell (WBC) Count 1.3 thou/uL (4.8-10.8)
[2018-10-23 10:41] LABS: Anion Gap 10 mmol/L (10-20); BUN (Urea Nitrogen) 14 mg/dL (9.8-20.1); Calc. Creatinine Clearance 70 mL/min (70-130); Calcium 9.5 mg/dL (7.8-10.44); Carbon Dioxide 26 mmol/L (23-31); Chloride 106 mmol/L (98-107); Estimated GFR-MDRD 74; Glucose 114 mg/dL (83-110); Potassium 3.9 mmol/L (3.5-5.1); Sodium 138 mmol/L (136-145)
[2018-10-24] MEDS: Cefepime 2 GM in Sodium Chloride 0.9% 100 ML IVPB SCH ×2 (03:08→12:31)
[2018-10-24] MEDS: methylPREDNISolone Sod Succ 40 MG VIAL IVP SCH ×2 (06:02→12:32)
[2018-10-24] MEDS: Budesonide 0.5 MG/2 ML NEB INH SCH (08:00)
[2018-10-24] MEDS ORDERED: Lisinopril 10 MG TAB PO SCH (09:00)
--- NOTE | 2018-10-24 09:03 | PDOC.PN ---
- Subjective Encounter Start Date: 10/24/18 Encounter Start Time: 08:30 Patient seen and examined. No new complaints. No overnight events - Objective MAR Reviewed: Yes Vital Signs & Weight: Vital Signs (12 hours) Temp Pulse Resp BP Pulse Ox 10/24/18 08:00 81 20 10/24/18 04:00 98.4 F 81 18 160/65 H 98 Weight Admit Weight 154 lb 5 oz Weight 154 lb 5 oz I&O: 10/23/18 10/24/18 10/25/18 06:59 06:59 06:59 Intake Total 1800 2500 Balance 1800 2500 Result Diagrams: 10/23/18 09:40 10/23/18 09:40 Phys Exam - Physical Examination Constitutional: NAD HEENT: PERRLA, moist MMs, sclera anicteric Neck: no JVD, supple Respiratory: no wheezing, no rales, no rhonchi Cardiovascular: RRR, no significant murmur, no rub Gastrointestinal: soft, non-tender, no distention, positive bowel sounds Musculoskeletal: no edema, pulses present Neurological: non-focal, normal sensation, moves all 4 limbs Psychiatric: normal affect, A&O x 3 Skin: no rash, normal turgor Dx/Plan (1) Acute bronchitis Code(s): J20.9 - ACUTE BRONCHITIS, UNSPECIFIED Status: Acute (2) Neutropenic fever Code(s): D70.9 - NEUTROPENIA, UNSPECIFIED; R50.81 - FEVER PRESENTING WITH CONDITIONS CLASSIFIED ELSEWHERE Status: Acute (3) Hypertension Code(s): I10 - ESSENTIAL (PRIMARY) HYPERTENSION Status: Chronic (4) Multiple myeloma Code(s): C90.00 - MULTIPLE MYELOMA NOT HAVING ACHIEVED REMISSION Status: Chronic (5) Influenza A Code(s): J10.1 - FLU DUE TO OTH IDENT INFLUENZA VIRUS W OTH RESP MANIFEST Status: Acute (6) Pancytopenia due to chemotherapy Code(s): D61.810 - ANTINEOPLASTIC CHEMOTHERAPY INDUCED PANCYTOPENIA Status: Acute - Plan cont current plan of care, continue antibiotics, respiratory therapy * medication reviewed as below * symptomatic treatment * overall stable and improving * see discharge summery. Review of Systems - Review of Systems ENT: negative: Ear Pain, Ear Discharge, Nose Pain, Nose Discharge, Nose Congestion, Mouth Pain, Mouth Swelling, Throat Pain, Throat Swelling, Other Respiratory: negative: Cough, Dry, Shortness of Breath, Hemoptysis, SOB with Excertion, Pleuritic Pain, Sputum, Wheezing Cardiovascular: negative: chest pain, palpitations, orthopnea, paroxysmal nocturnal dyspnea, edema, light headedness, other Gastrointestinal: negative: Nausea, Vomiting, Abdominal Pain, Diarrhea, Constipation, Melena, Hematochezia, Other Genitourinary: negative: Dysuria, Frequency, Incontinence, Hematuria, Retention , Other Musculoskeletal: negative: Neck Pain, Shoulder Pain, Arm Pain, Back Pain, Hand Pain, Leg Pain, Foot Pain, Other - Medications/Allergies Allergies/Adverse Reactions: Allergies Allergy/AdvReac Type Severity Reaction Status Date / Time No Known Allergies Allergy Verified 10/20/18 20:39 Medications: Current Medications Acetaminophen (Tylenol) 500 mg PO Q6H PRN PRN Reason: Mild Pain (1-3) Acetaminophen/Butalbital/Caffeine (Fioricet) 1 tab PO Q4H PRN PRN Reason: Headache Stop: 10/25/18 23:37 Last Admin: 10/21/18 00:04 Dose: 1 tab Hydrocodone Bitart/Acetaminophen ([place] 5/325) 1 tab PO Q4H PRN PRN Reason: Moderate Pain (4-6) Last Admin: 10/21/18 23:42 Dose: 1 tab Albuterol/Ipratropium (Duoneb) 3 ml NEB [id number] PRN PRN Reason: SOB &/or Wheezing Last Admin: 10/22/18 10:54 Dose: 3 ml Albuterol/Ipratropium (Duoneb) 3 ml NEB [id number] [facility] Last Admin: 10/24/18 08:00 Dose: 3 ml Amlodipine Besylate (Norvasc) 5 mg PO BID [facility] Last Admin: 10/23/18 20:48 Dose: 5 mg Artificial Tears (Tears Naturale) 2 drop EA EYE PRN PRN PRN Reason: Dry Eyes Aspirin (Ecotrin) 81 mg PO DAILY [facility] Last Admin: 10/23/18 09:50 Dose: 81 mg Benzonatate (Tessalon) 100 mg PO Q8H PRN PRN Reason: Cough Last Admin: 10/21/18 04:32 Dose: 100 mg Bisacodyl (Dulcolax) 10 mg PO DAILYPRN PRN PRN Reason: Constipation Budesonide (Pulmicort Neb Solution) 0.5 mg INH BID-RT [facility] Last Admin: 10/24/18 08:00 Dose: 0.5 mg Calcium Carbonate (Tums) 1,000 mg PO Q4H PRN PRN Reason: Heartburn or Indigestion Doxycycline Hyclate (Vibramycin) 100 mg PO BID [facility] Last Admin: 10/23/18 20:49 Dose: 100 mg Enoxaparin Sodium (Lovenox) 40 mg SC 0900 [facility] Last Admin: 10/23/18 09:48 Dose: 40 mg Famotidine (Pepcid) 20 mg PO BID [facility] Last Admin: 10/23/18 20:48 Dose: 20 mg Guaifenesin (Robitussin Sf) 200 mg PO Q4H PRN PRN Reason: Cough Last Admin: 10/23/18 21:28 Dose: 200 mg Guaifenesin (Mucinex) 600 mg PO Q12HR [facility] Last Admin: 10/23/18 20:49 Dose: 600 mg Hydralazine HCl (Apresoline) 10 mg SLOW IVP Q4H PRN PRN Reason: SBP > 180 and HR < 70 Last Admin: 10/23/18 00:42 Dose: 10 mg Cefepime HCl 2 gm/ Sodium (Chloride) 100 mls @ 200 mls/hr IVPB 0400,1200,2000 [facility] Last Admin: 10/24/18 03:08 Dose: 100 mls Lisinopril (Zestril) 10 mg PO DAILY [facility] Loperamide HCl (Imodium) 2 mg PO PRN PRN PRN Reason: Diarrhea/Loose Stools Loratadine (Claritin) 10 mg PO DAILYPRN PRN PRN Reason: Sinus Symptoms Methylprednisolone Sodium Succinate (Solu-Medrol) 20 mg IVP Q8HR [facility] Last Admin: 10/24/18 06:02 Dose: 20 mg Mineral Oil/White Petrolatum (Eucerin Cream) 0 gm TOP BIDPRN PRN PRN Reason: Dry Skin Morphine Sulfate (Morphine) 2 mg SLOW IVP Q4H PRN PRN Reason: Pain Ondansetron HCl (Zofran) 4 mg IVP Q6H PRN PRN Reason: Nausea/Vomiting Last Admin: 10/22/18 10:56 Dose: 4 mg Ondansetron HCl (Zofran Odt) 4 mg PO Q6H PRN PRN Reason: Nausea/Vomiting Last Admin: 10/24/18 03:06 Dose: 4 mg Oseltamivir Phosphate (Tamiflu) 75 mg PO BID [facility] Stop: 10/26/18 21:01 Last Admin: 10/23/18 20:50 Dose: 75 mg Promethazine HCl (Phenergan) 12.5 mg SLOW IVP Q6H PRN PRN Reason: Nausea Saccharomyces Boulardii (Florastor) 250 mg PO DAILY [facility] Last Admin: 10/23/18 09:49 Dose: 250 mg Sodium Chloride (Flush - Normal Saline) 10 ml IVF Q12HR PRN PRN Reason: Saline Flush Last Admin: 10/23/18 09:50 Dose: 10 ml Sodium Chloride ([place] Nasal [place] 0.65%) 0 ml EA NARE QIDPRN PRN PRN Reason: Nasal Congestion Throat Lozenges (Cepastat Lozenges) 1 dennise PO Q2H PRN PRN Reason: Sore Throat Zolpidem Tartrate (Ambien) 5 mg PO HSPRN PRN PRN Reason: Insomnia Last Admin: 10/21/18 23:42 Dose: 5 mg
[2018-10-24] MEDS: Oseltamivir 75 MG CAP PO SCH (09:06)
[2018-10-24] MEDS: Aspirin 81 mg Enteric Coated Tablet PO SCH (09:06)
[2018-10-24] MEDS: Famotidine 20 MG TAB PO SCH (09:06)
[2018-10-24] MEDS: guaiFENesin ER 600 MG TAB PO SCH (09:06)
[2018-10-24] MEDS: Doxycycline 100 MG CAP PO SCH (09:06)
[2018-10-24] MEDS: Enoxaparin Sodium 40 MG/0.4 ML SYRINGE SC SCH (09:06)
[2018-10-24] MEDS: Saccharomyces boulardii 250 MG CAP PO SCH (09:06)
[2018-10-24] MEDS: Amlodipine 5 MG TAB PO SCH (09:08)
[2018-10-24 09:31] VITALS: BP 148/68; TEMP 98.6
--- NOTE | 2018-10-24 10:07 | DIS ---
DATE OF ADMISSION: 10/20/2018 DATE OF DISCHARGE: 10/24/2018 PRIMARY CARE PHYSICIAN: Corky Dang MD DISCHARGE DISPOSITION: Home. PRIMARY DISCHARGE DIAGNOSES: Neutropenic fever, acute bronchitis, influenza A, and pancytopenia due to chemotherapy. SECONDARY DISCHARGE DIAGNOSES: Multiple myeloma and hypertension. PRIMARY PROCEDURES/OPERATION: None. RADIOLOGICAL INVESTIGATION: Chest x-ray, unremarkable. SIGNIFICANT LABORATORY DATA: WBC 1.3, hemoglobin 10.8, and platelets 149. Sodium 138, potassium 3.9, BUN 14, creatinine 0.76, and calcium 9.5. LFT normal. DISCHARGE MEDICATIONS: 1. Aspirin 81 mg daily. 2. Ventolin HFA two puffs q.6 hourly p.r.n. 3. Mucinex 600 mg twice daily for 5 days. 4. Doxycycline 100 mg p.o. b.i.d. for 5 days. 5. Tamiflu 75 mg p.o. b.i.d. for 3 days. 6. Prednisone 20 mg p.o. daily for 5 days. 7. Florastor 250 mg daily for 5 days. 8. Lisinopril 10 mg daily. 9. Amlodipine 5 mg p.o. b.i.d. CONTRAINDICATION: None. CODE STATUS: Full code. INPATIENT LIBRARY CIRCULATION CLERK: Dr. Corky Butler was following while in hospital. TEST RESULT PENDING ON DISCHARGE: None. ALLERGIES: NO KNOWN DRUG ALLERGIES. DISCHARGE PLAN: Posthospital, the patient will follow up with primary care physician and primary oncologist. HOSPITAL COURSE: A 78-year-old female, who was sent from Oncology Clinic. The patient has multiple myeloma and she has received chemotherapy prior to arrival. The patient was having neutropenia and fever. She was also having one week history of upper respiratory infection, which has progressed to bronchitis. Her viral panel positive for influenza A. She was treated with Tamiflu while in hospital. She was also given empiric antibiotic therapy with cefepime and doxycycline. She was also given steroid. With this treatment, the patient's condition significantly improved. The patient is medically stable for discharge today. She will continue above-mentioned medication, and she will follow up with Oncology for further chemotherapy when appropriate. The patient is seen and examined at the bedside today. Please see my progress note from today for further detail. Job ID: [id number]
[2018-10-24 10:11] LABS: #Lymphocytes 0.4 thou/uL (1.20-3.40); #Monocytes 0.2 thou/uL (0.11-0.59); #Neutrophils 1.7 thou/uL (1.40-6.50); %Eosinophils 0.7 % (0.0-10.0); %Monocytes 9.2 % (0.0-10.0); %Neutrophils 72.1 % (42.0-75.0); Mean Corpuscular HGB CONC 33.1 g/dL (32.0-36.0); Mean Corpuscular Hemoglobin 32.3 pg (27.0-31.0); Mean Corpuscular Volume 97.5 fL (78.0-98.0); Mean Platelet Volume 8.6 fL (7.4-10.4); Platelet Count 148 thou/uL (130-400); RBC Distribution Width 12.7 % (11.5-14.5); White Blood Cell (WBC) Count 2.3 thou/uL (4.8-10.8)
[2018-10-24 10:36] LABS: Anion Gap 12 mmol/L (10-20); BUN (Urea Nitrogen) 23 mg/dL (9.8-20.1); Calc. Creatinine Clearance 65 mL/min (70-130); Calcium 8.9 mg/dL (7.8-10.44); Carbon Dioxide 25 mmol/L (23-31); Chloride 106 mmol/L (98-107); Estimated GFR-MDRD 69; Glucose 113 mg/dL (83-110); Sodium 139 mmol/L (136-145)
== END 2018-10-24 14:42 | disposition home or self-care (01) | DRG 871 ==
LOC: ONC 17:45
PROVIDERS: ADMIT Family Medicine; ATTEND Family Medicine
DX: A41.9 Sepsis, unspecified organism (principal); D61.810 Antineoplastic chemotherapy induced pancytopenia; C90.00 Multiple myeloma not having achieved remission; R65.20 Severe sepsis without septic shock; J11.1 Influenza due to unidentified influenza virus with other respiratory manifestations; I10 Essential (primary) hypertension; T45.1X5A Adverse effect of antineoplastic and immunosuppressive drugs, initial encounter; J20.9 Acute bronchitis, unspecified; R50.81 Fever presenting with conditions classified elsewhere; Z90.49 Acquired absence of other specified parts of digestive tract; Z79.82 Long term (current) use of aspirin; Z79.899 Other long term (current) drug therapy
CPT/HCPCS: 36415; 71046; 80048; 80053; 82248; 83615; 84100; 84550; 85007; 85025; 85027; 87040; 87633; 94640; J0360; J0692; J1642; J1650; J2405; J2920; J7050; J7620; J7626; Q0162

== ENCOUNTER 2020-07-25 09:52 | Outpatient (CLI) | payer MEDICARE ==
--- NOTE | 2020-07-25 12:42 | MRI ---
EXAM: MRI right femur with and without IV contrast PROVIDED CLINICAL HISTORY: Pain, history of multiple myeloma COMPARISON: None FINDINGS: Regional marrow signal appears without significant abnormality. Regional muscular signal appears with out significant abnormality. There is no abnormal contrast enhancement evident. The amount of fluid within the right knee joint appears physiologic. No evidence for regional lymph node enlargement. The courses of the regional major neurovascular structures appear unremarkable. IMPRESSION: No evidence for an acute process.
--- NOTE | 2020-07-25 13:05 | MRI ---
EXAM: MRI right hip with and without IV contrast PROVIDED CLINICAL HISTORY: Right hip pain, history of multiple myeloma COMPARISON: MRI right hip 06/20/2015 [facility] FINDINGS: There is a 2.8 cm circumscribed focus of marrow signal alteration within the right medial iliac bone demonstrating partial contrast enhancement. This is in the location of prior signal abnormality on MRI of 06/20/2015, appearing confluent rather than representing two separate lesions on the current s tudy. There is diminished T1 signal intensity and increased T2 signal intensity involving the coccyx with associated contrast enhancement. Regional marrow signal appears otherwise unremarkable. The amount of fluid within the right hip joint appears physiologic. There is conspicuous trochanteric bursal fluid bilaterally, right greater than left. Evaluation of the gluteal tendons on the right is limited due to patient motion on the axial sequence. There is full-thickness partial width tearing involving the anterior fibers of the right gluteus medius tendon at its insertion. There is at least high-grade partial-thickness tearing involving the right gluteus minimus tendon at its insertio n. The left gluteal tendons are not optimally evaluated on this examination as they are only included on wide field of view coronal sequences. The right hamstring, flexor and adductor tendons appear intact. The courses of the regional major abimael rovascular structures appear unremarkable. There is partial fatty infiltration of the right gluteus minimus muscle. Regional muscular signal appears otherwise unremarkable. There is no evidence for reg ional lymph node enlargement. IMPRESSION: 1. Tears of the right gluteus medius and minimus tendons as described. 2. Foci of signal alteration with associated contrast enhancement are seen involving the right medial iliac bone and coccyx, which could reflect myelomatous lesions.
[2020-07-25] MEDS ORDERED: Magnevist 469MG/ML 20 ML VIAL ONE ×2 (13:38)
== END 2020-07-25 09:53 | disposition home or self-care (01) ==
LOC: BICMRI 09:52
PROVIDERS: ATTEND Nurse Practitioner Family
DX: C90.00 Multiple myeloma not having achieved remission (principal); M79.651 Pain in right thigh; M25.551 Pain in right hip; S76.911A Strain of unspecified muscles, fascia and tendons at thigh level, right thigh, initial encounter
CPT/HCPCS: A9579

== ENCOUNTER 2021-03-12 19:10 | Emergency (ER) | payer MEDICARE ==
[2021-03-12 19:42] LABS: Hemoglobin 12.1 g/dL (12.0-16.0); Mean Corpuscular HGB CONC 34.6 g/dL (32.0-36.0); Mean Corpuscular Hemoglobin 33.3 pg (27.0-31.0); Mean Corpuscular Volume 96.3 fL (78.0-98.0); Mean Platelet Volume 7.9 fL (7.4-10.4); Platelet Count 156 thou/uL (130-400); RBC Distribution Width 14.4 % (11.5-14.5); Red Blood Cell (RBC) Count 3.64 mill/uL (4.20-5.40); White Blood Cell (WBC) Count 3.6 thou/uL (4.8-10.8)
[2021-03-12 20:02] LABS: ALT (SGPT) 15 U/L (8-55); AST (SGOT) 17 U/L (5-34); Albumin 4.4 g/dL (3.4-4.8); Alkaline Phosphatase 58 U/L (40-110); Anion Gap 14 mmol/L (10-20); BUN (Urea Nitrogen) 19 mg/dL (9.8-20.1); Bilirubin, Total 0.6 mg/dL (0.2-1.2); Calc. Creatinine Clearance 0 mL/min (70-130); Calcium 9.4 mg/dL (7.8-10.44); Carbon Dioxide 22 mmol/L (23-31); Chloride 107 mmol/L (98-107); Glucose 93 mg/dL (83-110); Potassium 3.9 mmol/L (3.5-5.1); Protein, Total 6.4 g/dL (5.8-8.1); Sodium 139 mmol/L (136-145)
[2021-03-12 20:25] LABS: Band 3 % (5-11); Eosinophils 3 % (0-10); Lymphocytes 15 % (21-51); MDiff Complete? YES; Monocytes 21 % (0-10); Neutrophil 52 % (42-75); Ovalocytes SLIGHT = 2-5 cells (100X) (0-1/hpf); Platelet Morphology Comment Appears Adequate; Polychromasia SLIGHT = 2-3 cells (100X) (0-2/hpf); Reactive Lymphocytes 4 % (0-10)
== END 2021-03-12 23:08 | disposition home or self-care (01) ==
LOC: ERS 19:10
DX: R06.00 Dyspnea, unspecified (principal)
CPT/HCPCS: 36415; 71045; 80053; 83880; 84484; 85025; 93005

== ENCOUNTER 2021-12-13 11:30 | Outpatient (CLI) | payer MEDICARE | END 2021-12-13 11:31 | disposition home or self-care (01) | LOC: SCSMRI 11:30 | PROVIDERS: ATTEND Internal Medicine Hematology & Oncology | DX: M25.551 Pain in right hip (principal); C90.00 Multiple myeloma not having achieved remission ==

== ENCOUNTER 2022-01-07 15:52 | Outpatient (CLI) | payer MEDICARE | END 2022-01-07 15:53 | disposition home or self-care (01) | LOC: ULT 15:52 | PROVIDERS: ATTEND Radiology Radiation Oncology | DX: I82.401 Acute embolism and thrombosis of unspecified deep veins of right lower extremity (principal); M79.604 Pain in right leg; M79.89 Other specified soft tissue disorders ==

== ENCOUNTER 2023-04-02 13:12 | Outpatient (CLI) | payer MEDICARE | END 2023-04-02 13:13 | disposition home or self-care (01) | LOC: RAD 13:12 | PROVIDERS: ATTEND Internal Medicine Hematology & Oncology | DX: R05.9 Cough, unspecified (principal) | CPT/HCPCS: 36415; 71046; 80053; 82248; 83615; 83883; 84100; 84155; 84165; 84550 ==

== ENCOUNTER 2024-02-23 13:16 | Outpatient (CLI) | payer MEDICARE | END 2024-02-23 13:17 | disposition home or self-care (01) | LOC: RAD 13:16 | PROVIDERS: ATTEND Internal Medicine Critical Care Medicine | DX: R06.00 Dyspnea, unspecified (principal); J98.4 Other disorders of lung; I70.0 Atherosclerosis of aorta | CPT/HCPCS: 71046 ==

== ENCOUNTER 2024-04-29 16:58 | Inpatient (IN) | payer MEDICARE ==
[2024-04-29 18:13] LABS: Bacteria/HPF 4+ HPF (None Seen); Bilirubin Negative (Negative); Blood, Urine Negative (Negative); CAUTI Indications for Culture Alt mental st,lethar; Clarity Turbid (Clear); Glucose, Urine (Dipstick) Normal (Negative); Ketone, Urine Negative (Negative); Leukocyte 500 Leu/uL (Negative); Nitrite 2+ (Negative); Protein, Urine (Dipstick) 20 mg/dL (Neg-Trace); RBC/HPF 0-3 HPF (0-3); Specific Gravity, Urine 1.017 (1.002-1.036); Squamous Epithelial 0-3 HPF (0-3); Urobilinogen Normal mg/dL (Less than 2); WBC/HPF Greater than 50 HPF (0-3); pH, Urine 5.5 (5.0-9.0)
[2024-04-29 18:17] LABS: Urine Culture Reflex Yes Yes
[2024-04-29 18:47] LABS: Hemoglobin 9.1 g/dL (12.0-16.0); Mean Corpuscular HGB CONC 32.5 g/dL (32.0-36.0); Mean Corpuscular Hemoglobin 29.8 pg (27.0-31.0); Mean Corpuscular Volume 91.8 fL (78.0-98.0); Mean Platelet Volume 10.5 fL (7.4-10.4); Platelet Count 147 10x3/uL (130-400); RBC Distribution Width 16.1 % (11.5-14.5); Red Blood Cell (RBC) Count 3.05 mill/uL (4.20-5.40)
[2024-04-29 19:01] LABS: ALT (SGPT) 19 U/L (8-55); AST (SGOT) 30 U/L (5-34); Albumin 2.5 g/dL (3.4-4.8); Alkaline Phosphatase 70 U/L (40-110); Anion Gap 14 mmol/L (10-20); BUN (Urea Nitrogen) 41 mg/dL (9.8-20.1); Bilirubin, Total 0.5 mg/dL (0.2-1.2); CK (CPK) 25 U/L (29-168); Calc. Creatinine Clearance 0 mL/min (70-130); Calcium 8.6 mg/dL (7.8-10.44); Carbon Dioxide 20 mmol/L (23-31); Chloride 95 mmol/L (98-107); Estimated GFR 36; Globulin 3.6 g/dL (2.4-3.5); Glucose 98 mg/dL (83-110); Potassium 4.2 mmol/L (3.5-5.1); Protein, Total 6.1 g/dL (5.8-8.1); Sodium 125 mmol/L (136-145)
[2024-04-29 19:06] LABS: Troponin I Less than 0.010 ng/mL (< 0.028)
[2024-04-29 19:13] LABS: Band 2 % (5-11); Dohle Bodies SLIGHT; Lymphocytes 11 % (21-51); Macrocytosis SLIGHT = 6-15 cells HPF (0-5); Monocytes 6 % (0-10); Myelocyte 1 % (0-0); Neutrophil 80 % (42-75); Ovalocytes SLIGHT = 2-5 cells HPF (0-1); Platelet Adequacy Comment Platelets Normal; Polychromasia SLIGHT = 2-3 cells HPF (0-2); Tear Drops SLIGHT = 2-5 cells HPF (0-1); Toxic Granulation SLIGHT
[2024-04-29] MEDS ORDERED: Ondansetron PF 4 MG/2 ML Vial IVP PRN (19:49)
[2024-04-29] MEDS ORDERED: Ondansetron ODT 4 MG TAB PO PRN (19:49)
[2024-04-29] MEDS ORDERED: Acetaminophen 325 MG TAB PO PRN (19:49)
[2024-04-29 21:22] VITALS: BMI 23.7
[2024-04-29] MEDS: Budesonide 0.25 MG/2 ML NEB INH SCH (21:49)
[2024-04-29] MEDS: Sodium Chloride 0.9% 1,000 ML IV SCH (22:28)
[2024-04-29] MEDS: cefTRIAXone\\ROCEPHIN 1 GM in Sodium Chloride 0.9% 100 ML IVPB SCH (22:29)
[2024-04-29] MEDS: Doxycycline 100 MG in Sodium Chloride 0.9% 100 ML IVPB SCH (22:30)
[2024-04-29] MEDS: Heparin 5,000 UNITS/ML VIAL SC SCH (22:30)
[2024-04-29 22:42] LABS: Chloride 99 mmol/L (98-107); Potassium 4.2 mmol/L (3.5-5.1); Sodium 123 mmol/L (136-145)
[2024-04-29 22:43] LABS: Albumin 2.5 g/dL (3.4-4.8); Calcium 8.4 mg/dL (7.8-10.44)
[2024-04-29 22:44] LABS: Glucose 94 mg/dL (83-110)
[2024-04-29 22:45] LABS: Anion Gap 14 mmol/L (10-20); Carbon Dioxide 14 mmol/L (23-31)
[2024-04-29 22:48] LABS: BUN (Urea Nitrogen) 37 mg/dL (9.8-20.1); BUN/Creatinine Ratio 26.62; Calc. Creatinine Clearance 32 mL/min (70-130); Estimated GFR 38
[2024-04-30 00:18] LABS: Phosphorus 2.1 mg/dL (2.3-4.7)
[2024-04-30] MEDS: Potassium Phosphate 15 MMOL in Sodium Chloride 0.9% 100 ML IVPB SCH (00:50)
[2024-04-30 01:21] LABS: Albumin 2.5 g/dL (3.4-4.8); Anion Gap 14 mmol/L (10-20); BUN (Urea Nitrogen) 35 mg/dL (9.8-20.1); BUN/Creatinine Ratio 28.23; Calc. Creatinine Clearance 36 mL/min (70-130); Calcium 8.5 mg/dL (7.8-10.44); Carbon Dioxide 19 mmol/L (23-31); Chloride 98 mmol/L (98-107); Estimated GFR 43; Glucose 98 mg/dL (83-110); Phosphorus 2.2 mg/dL (2.3-4.7); Potassium 3.9 mmol/L (3.5-5.1); Sodium 127 mmol/L (136-145)
[2024-04-30 05:14] LABS: Hematocrit 26.3 % (36.0-47.0); Hemoglobin 8.7 g/dL (12.0-16.0); Mean Corpuscular HGB CONC 33.1 g/dL (32.0-36.0); Mean Corpuscular Hemoglobin 29.8 pg (27.0-31.0); Mean Corpuscular Volume 90.1 fL (78.0-98.0); Mean Platelet Volume 10.4 fL (7.4-10.4); Platelet Count 141 10x3/uL (130-400); RBC Distribution Width 15.9 % (11.5-14.5); Red Blood Cell (RBC) Count 2.92 mill/uL (4.20-5.40)
[2024-04-30 05:29] LABS: Albumin 2.3 g/dL (3.4-4.8); Anion Gap 12 mmol/L (10-20); BUN (Urea Nitrogen) 33 mg/dL (9.8-20.1); Calc. Creatinine Clearance 37 mL/min (70-130); Calcium 7.7 mg/dL (7.8-10.44); Carbon Dioxide 20 mmol/L (23-31); Chloride 98 mmol/L (98-107); Estimated GFR 45; Glucose 95 mg/dL (83-110); Potassium 4.1 mmol/L (3.5-5.1); Sodium 126 mmol/L (136-145)
[2024-04-30 05:33] LABS: ALT (SGPT) 15 U/L (8-55); AST (SGOT) 26 U/L (5-34); Albumin 2.3 g/dL (3.4-4.8); Alkaline Phosphatase 65 U/L (40-110); Anion Gap 12 mmol/L (10-20); BUN (Urea Nitrogen) 33 mg/dL (9.8-20.1); Bilirubin, Total 0.4 mg/dL (0.2-1.2); Calc. Creatinine Clearance 36 mL/min (70-130); Carbon Dioxide 20 mmol/L (23-31); Chloride 100 mmol/L (98-107); Estimated GFR 44; Glucose 95 mg/dL (83-110); Potassium 4.1 mmol/L (3.5-5.1); Protein, Total 5.3 g/dL (5.8-8.1); Sodium 128 mmol/L (136-145)
[2024-04-30 05:51] LABS: Band 4 % (5-11); Dohle Bodies SLIGHT; Elliptocytes SLIGHT = 2-5 cells HPF (0-1); Lymphocytes 14 % (21-51); Macrocytosis SLIGHT = 6-15 cells HPF (0-5); Monocytes 6 % (0-10); Neutrophil 76 % (42-75); Platelet Adequacy Comment Platelets Normal; Polychromasia SLIGHT = 2-3 cells HPF (0-2); Schistocytes SLIGHT = 2-5 cells HPF (0-1); Tear Drops SLIGHT = 2-5 cells HPF (0-1); Toxic Granulation MODERATE; Vacuoles SLIGHT
[2024-04-30] MEDS: Aspirin 81 mg Enteric Coated Tablet PO SCH (09:15)
[2024-04-30] MEDS: valACYclovir 500 MG TAB PO SCH (09:15)
[2024-04-30] MEDS: Pantoprazole DR 40 MG TAB PO SCH (09:15)
[2024-04-30 11:14] LABS: Albumin 2.2 g/dL (3.4-4.8); Anion Gap 13 mmol/L (10-20); BUN (Urea Nitrogen) 28 mg/dL (9.8-20.1); Calc. Creatinine Clearance 40 mL/min (70-130); Carbon Dioxide 20 mmol/L (23-31); Chloride 100 mmol/L (98-107); Estimated GFR 49; Glucose 98 mg/dL (83-110); Phosphorus 2.9 mg/dL (2.3-4.7); Potassium 4.1 mmol/L (3.5-5.1); Sodium 129 mmol/L (136-145)
[2024-04-30 17:36] LABS: Albumin 2.2 g/dL (3.4-4.8); Anion Gap 13 mmol/L (10-20); BUN (Urea Nitrogen) 27 mg/dL (9.8-20.1); BUN/Creatinine Ratio 23.28; Calc. Creatinine Clearance 38 mL/min (70-130); Calcium 7.9 mg/dL (7.8-10.44); Carbon Dioxide 20 mmol/L (23-31); Chloride 101 mmol/L (98-107); Estimated GFR 47; Glucose 110 mg/dL (83-110); Phosphorus 2.2 mg/dL (2.3-4.7); Potassium 4.2 mmol/L (3.5-5.1); Sodium 130 mmol/L (136-145)
[2024-04-30] MEDS: Sodium Bicarbonate Tab 325 MG TAB PO SCH (20:04)
[2024-05-01 05:11] LABS: Albumin 2.1 g/dL (3.4-4.8); Anion Gap 11 mmol/L (10-20); BUN (Urea Nitrogen) 20 mg/dL (9.8-20.1); BUN/Creatinine Ratio 18.35; Calc. Creatinine Clearance 41 mL/min (70-130); Calcium 7.8 mg/dL (7.8-10.44); Carbon Dioxide 19 mmol/L (23-31); Chloride 104 mmol/L (98-107); Estimated GFR 51; Glucose 105 mg/dL (83-110); Sodium 130 mmol/L (136-145)
[2024-05-01] MEDS: Budesonide 0.25 MG/2 ML NEB INH SCH (07:40)
[2024-05-01] MEDS ORDERED: Sodium Bicarbonate Tab 325 MG TAB PO SCH ×2 (09:00)
[2024-05-01] MEDS: Sodium Bicarbonate Tab 325 MG TAB PO SCH (09:29)
[2024-05-01] MEDS: PHOS-NAK 1 PKT PACK PO SCH (09:29)
[2024-05-02] MEDS: Albumin 25% 25 GM (100 mL) BOT IVPB SCH ×2 (08:33→17:56)
[2024-05-02] MEDS: Sodium Phosphate 30 MMOL in Sodium Chloride 0.9% 250 ML 250 ML IVPB SCH (10:07)
[2024-05-03 05:03] LABS: Hematocrit 25.3 % (36.0-47.0); Hemoglobin 8.1 g/dL (12.0-16.0); Mean Corpuscular Hemoglobin 29.8 pg (27.0-31.0); Mean Platelet Volume 10.9 fL (7.4-10.4); Platelet Count 144 10x3/uL (130-400); RBC Distribution Width 15.9 % (11.5-14.5); Red Blood Cell (RBC) Count 2.72 mill/uL (4.20-5.40)
[2024-05-03 05:11] LABS: Albumin 2.8 g/dL (3.4-4.8); Anion Gap 13 mmol/L (10-20); BUN (Urea Nitrogen) 19 mg/dL (9.8-20.1); BUN/Creatinine Ratio 16.96; Calc. Creatinine Clearance 42 mL/min (70-130); Calcium 8.3 mg/dL (7.8-10.44); Carbon Dioxide 21 mmol/L (23-31); Chloride 100 mmol/L (98-107); Estimated GFR 49; Glucose 95 mg/dL (83-110); Potassium 3.7 mmol/L (3.5-5.1); Sodium 130 mmol/L (136-145)
[2024-05-03 05:12] LABS: Iron 13 ug/dL (50-170); Iron Binding Capacity, Total 134 mcg/dL (265-497)
[2024-05-03 05:44] LABS: Lymphocytes 5 % (21-51); Microcytosis SLIGHT = 6-15 cells HPF (0-5); Monocytes 1 % (0-10); Neutrophil 93 % (42-75); Ovalocytes SLIGHT = 2-5 cells HPF (0-1); Platelet Adequacy Comment Platelets Decreased; Polychromasia SLIGHT = 2-3 cells HPF (0-2); Tear Drops SLIGHT = 2-5 cells HPF (0-1); Toxic Granulation MODERATE
[2024-05-03] MEDS: Sodium Ferric Gluconate 250 MG in Sodium Chloride 0.9% 250 ML 250 ML IVPB SCH ×2 (10:20→11:08)
[2024-05-03] MEDS: traMADol HCl 50 MG TAB PO PRN (21:15)
[2024-05-04 10:56] LABS: Anion Gap 15 mmol/L (10-20); BUN (Urea Nitrogen) 20 mg/dL (9.8-20.1); Calc. Creatinine Clearance 39 mL/min (70-130); Calcium 8.4 mg/dL (7.8-10.44); Carbon Dioxide 24 mmol/L (23-31); Chloride 96 mmol/L (98-107); Estimated GFR 46; Glucose 106 mg/dL (83-110); Potassium 4.1 mmol/L (3.5-5.1); Sodium 131 mmol/L (136-145)
[2024-05-04] MEDS: Sodium Bicarbonate Tab 325 MG TAB PO SCH (15:57)
[2024-05-04] MEDS: EPOETIN ALFA-EPBX (ESRD) 10,000 UNITS/ML VIAL SC SCH (15:57)
[2024-05-05 09:07] LABS: Hematocrit 24.8 % (36.0-47.0); Mean Corpuscular HGB CONC 32.3 g/dL (32.0-36.0); Mean Corpuscular Hemoglobin 29.5 pg (27.0-31.0); Mean Corpuscular Volume 91.5 fL (78.0-98.0); Mean Platelet Volume 10.3 fL (7.4-10.4); Platelet Count 165 10x3/uL (130-400); RBC Distribution Width 15.8 % (11.5-14.5); Red Blood Cell (RBC) Count 2.71 mill/uL (4.20-5.40)
[2024-05-05 09:16] LABS: Albumin 2.2 g/dL (3.4-4.8); Anion Gap 11 mmol/L (10-20); BUN (Urea Nitrogen) 18 mg/dL (9.8-20.1); BUN/Creatinine Ratio 16.36; Calc. Creatinine Clearance 42 mL/min (70-130); Calcium 8.2 mg/dL (7.8-10.44); Carbon Dioxide 24 mmol/L (23-31); Chloride 98 mmol/L (98-107); Estimated GFR 50; Glucose 104 mg/dL (83-110); Phosphorus 2.6 mg/dL (2.3-4.7); Potassium 3.7 mmol/L (3.5-5.1); Sodium 129 mmol/L (136-145)
[2024-05-05 10:26] LABS: Band 4 % (5-11); Hypochromia SLIGHT = 6-15 cells HPF (0-5); Lymphocytes 6 % (21-51); Monocytes 1 % (0-10); Neutrophil 87 % (42-75); Ovalocytes SLIGHT = 2-5 cells HPF (0-1); Platelet Adequacy Comment Platelets Normal; Polychromasia SLIGHT = 2-3 cells HPF (0-2); Reactive Lymphocytes 1 % (0-10); Schistocytes SLIGHT = 2-5 cells HPF (0-1); Tear Drops SLIGHT = 2-5 cells HPF (0-1)
[2024-05-05] MEDS ORDERED: Sodium Chloride 1 GM TAB PO SCH (11:30)
[2024-05-05] MEDS: Torsemide 10 MG TAB PO SCH (11:37)
[2024-05-05 13:34] VITALS: BMI 25.0
[2024-05-05] MEDS: Sodium Chloride 1 GM TAB PO SCH (15:41)
[2024-05-06 08:01] LABS: Albumin 2.3 g/dL (3.4-4.8); Anion Gap 9 mmol/L (10-20); BUN (Urea Nitrogen) 22 mg/dL (9.8-20.1); Calc. Creatinine Clearance 40 mL/min (70-130); Calcium 8.4 mg/dL (7.8-10.44); Carbon Dioxide 27 mmol/L (23-31); Chloride 100 mmol/L (98-107); Estimated GFR 47; Glucose 114 mg/dL (83-110); Phosphorus 2.4 mg/dL (2.3-4.7); Potassium 3.7 mmol/L (3.5-5.1); Sodium 132 mmol/L (136-145)
[2024-05-06 08:34] LABS: Band 4 % (5-11); Hematocrit 25.3 % (36.0-47.0); Hemoglobin 8.2 g/dL (12.0-16.0); Lymphocytes 5 % (21-51); Mean Corpuscular HGB CONC 32.4 g/dL (32.0-36.0); Mean Corpuscular Hemoglobin 29.7 pg (27.0-31.0); Mean Corpuscular Volume 91.7 fL (78.0-98.0); Mean Platelet Volume 10.4 fL (7.4-10.4); Monocytes 4 % (0-10); Neutrophil 86 % (42-75); Platelet Adequacy Comment Platelets Normal; Platelet Count 167 10x3/uL (130-400); RBC Distribution Width 15.9 % (11.5-14.5); RBC Morphology Within Normal Limits; Reactive Lymphocytes 1 % (0-10); Red Blood Cell (RBC) Count 2.76 mill/uL (4.20-5.40)
[2024-05-06] MEDS: Budesonide 0.5 MG/2 ML NEB ONE (09:40)
[2024-05-06 11:17] VITALS: TEMP 98.5
[2024-05-06 15:23] VITALS: BP 119/58
== END 2024-05-06 16:10 | disposition swing bed (61) | DRG 682 ==
LOC: ERS 16:58 → 2NO 19:52
PROVIDERS: ADMIT Internal Medicine; ATTEND Internal Medicine
PROC: 0T9B70Z Drainage of Bladder with Drainage Device, Via Natural or Artificial Opening (ICD-10-PCS; principal; 2024-04-29)
PROC: 30233J1 Transfusion of Nonautologous Serum Albumin into Peripheral Vein, Percutaneous Approach (ICD-10-PCS; 2024-05-02)
DX: N17.9 Acute kidney failure, unspecified (principal); G93.41 Metabolic encephalopathy; E87.1 Hypo-osmolality and hyponatremia; N39.0 Urinary tract infection, site not specified; J84.9 Interstitial pulmonary disease, unspecified; C90.00 Multiple myeloma not having achieved remission; E87.20 Acidosis, unspecified; D32.0 Benign neoplasm of cerebral meninges; J44.9 Chronic obstructive pulmonary disease, unspecified; E86.0 Dehydration; N18.30 Chronic kidney disease, stage 3 unspecified; I12.9 Hypertensive chronic kidney disease with stage 1 through stage 4 chronic kidney disease, or unspecified chronic kidney disease; E83.39 Other disorders of phosphorus metabolism; D63.1 Anemia in chronic kidney disease; Z79.899 Other long term (current) drug therapy; Z98.49 Cataract extraction status, unspecified eye; Z98.890 Other specified postprocedural states; Z79.82 Long term (current) use of aspirin; Z79.01 Long term (current) use of anticoagulants
CPT/HCPCS: 36415; 51701; 70450; 70551; 71045; 80048; 80053; 80069; 81001; 82248; 82306; 82550; 82728; 83540; 83550; 83605; 83615; 83880; 83883; 83930; 83935; 84100; 84155; 84165; 84484; 84550; 85025; 87040; 87077; 87086; 87186; 93005; 93970; 94640; J0696; J1644; J2916; J7030; J7050; J7626; P9047; Q5105

== ENCOUNTER 2024-05-18 13:17 | Outpatient (CLI) | payer MEDICARE | END 2024-05-18 13:18 | disposition home or self-care (01) | LOC: HS RAD 13:17 | PROVIDERS: ATTEND Family Medicine | DX: M79.89 Other specified soft tissue disorders (principal); R29.6 Repeated falls; R53.1 Weakness; M79.662 Pain in left lower leg ==

== ENCOUNTER 2024-06-15 16:24 | Inpatient (IN) | payer MEDICARE ==
[2024-06-15 18:33] LABS: Bacteria/HPF 3+ HPF (None Seen); Bilirubin Negative (Negative); Blood, Urine 2+ (Negative); CAUTI Indications for Culture Alt mental st,lethar; Clarity Extra Turbid (Clear); Glucose, Urine (Dipstick) Normal (Negative); Ketone, Urine Negative (Negative); Leukocyte 500 Leu/uL (Negative); Nitrite Negative (Negative); Protein, Urine (Dipstick) 20 mg/dL (Neg-Trace); RBC/HPF Greater than 50 HPF (0-3); Specific Gravity, Urine 1.014 (1.002-1.036); Squamous Epithelial 0-3 HPF (0-3); Urobilinogen Normal mg/dL (Less than 2); WBC/HPF Greater than 50 HPF (0-3)
[2024-06-15 18:36] LABS: Urine Culture Reflex Yes Yes
[2024-06-15 18:47] LABS: #Basophils 0.11 10x3/uL (0.0-0.2); %Basophils 0.5 % (0.0-1.0); %Eosinophils 0.7 % (0.0-10.0); %Lymphocytes 7.4 % (21.0-51.0); %Monocytes 3.4 % (0.0-10.0); Hematocrit 32.5 % (36.0-47.0); Hemoglobin 10.8 g/dL (12.0-16.0); Mean Corpuscular HGB CONC 33.2 g/dL (32.0-36.0); Mean Corpuscular Hemoglobin 32.1 pg (27.0-31.0); Mean Corpuscular Volume 96.7 fL (78.0-98.0); Mean Platelet Volume 9.2 fL (7.4-10.4); Platelet Count 225 10x3/uL (130-400); RBC Distribution Width 20.6 % (11.5-14.5); Red Blood Cell (RBC) Count 3.36 mill/uL (4.20-5.40)
[2024-06-15 19:07] LABS: ALT (SGPT) 11 U/L (8-55); AST (SGOT) 41 U/L (5-34); Albumin 2.9 g/dL (3.4-4.8); Alkaline Phosphatase 86 U/L (40-110); Anion Gap 19 mmol/L (10-20); BUN (Urea Nitrogen) 66 mg/dL (9.8-20.1); Bilirubin, Total 0.6 mg/dL (0.2-1.2); Calc. Creatinine Clearance 0 mL/min (70-130); Calcium 8.5 mg/dL (7.8-10.44); Carbon Dioxide 12 mmol/L (23-31); Chloride 100 mmol/L (98-107); Estimated GFR 10; Globulin 3.5 g/dL (2.4-3.5); Glucose 80 mg/dL (83-110); Lipase 39 U/L (8-78); Potassium 6.4 mmol/L (3.5-5.1); Protein, Total 6.4 g/dL (5.8-8.1); Sodium 125 mmol/L (136-145)
[2024-06-15 19:09] LABS: Troponin I Less than 0.010 ng/mL (< 0.028)
[2024-06-15] MEDS ORDERED: Calcium Chloride 1 GM/10 ML Abboject SYRINGE ONE (19:40)
[2024-06-15] MEDS ORDERED: Sodium Bicarb 50 mEq/50 ML VIAL ONE (19:41)
[2024-06-15] MEDS ORDERED: CALCIUM GLUC 1 GM/NS 50 ML IV Bag ONE (19:53)
[2024-06-15] MEDS ORDERED: Sodium Bicarb 50 MEQ/50 ML Abboject 8.4% SYRINGE ONE (20:09)
[2024-06-15] MEDS ORDERED: Acetaminophen 650 MG Suppository PR PRN (21:47)
[2024-06-15] MEDS ORDERED: Ondansetron ODT 4 MG TAB PO PRN (21:47)
[2024-06-15] MEDS ORDERED: Ondansetron PF 4 MG/2 ML Vial IVP PRN (21:47)
[2024-06-15] MEDS ORDERED: Ipratropium/Albuterol 3 ML NEB NEB PRN (22:04)
[2024-06-15] MEDS ORDERED: cefTRIAXone (ROCEPHIN) 2 GM VIAL ONE (22:47)
[2024-06-15] MEDS ORDERED: Sodium Chloride 0.9% 100 ML ONE (22:49)
[2024-06-16] MEDS: Sodium Bicarbonate 150 mEq in Dextrose 5% IV SCH (00:30)
[2024-06-16] MEDS: Acetaminophen 325 MG TAB PO SCH (00:31)
[2024-06-16 00:40] VITALS: BMI 27.6
[2024-06-16] MEDS: Ipratropium/Albuterol 3 ML NEB NEB SCH (01:30)
[2024-06-16] MEDS: Scopolamine 1 mg/72 hour Patch TD SCH (04:45)
[2024-06-16 05:34] LABS: ALT (SGPT) 11 U/L (8-55); AST (SGOT) 35 U/L (5-34); Albumin 2.5 g/dL (3.4-4.8); Alkaline Phosphatase 80 U/L (40-110); Anion Gap 20 mmol/L (10-20); BUN (Urea Nitrogen) 65 mg/dL (9.8-20.1); Bilirubin, Total 0.4 mg/dL (0.2-1.2); Calc. Creatinine Clearance 11 mL/min (70-130); Calcium 8.1 mg/dL (7.8-10.44); Carbon Dioxide 14 mmol/L (23-31); Chloride 99 mmol/L (98-107); Estimated GFR 9; Globulin 3.1 g/dL (2.4-3.5); Glucose 102 mg/dL (83-110); Hematocrit 26.4 % (36.0-47.0); Hemoglobin 8.9 g/dL (12.0-16.0); Mean Corpuscular HGB CONC 33.7 g/dL (32.0-36.0); Mean Corpuscular Hemoglobin 31.4 pg (27.0-31.0); Mean Corpuscular Volume 93.3 fL (78.0-98.0); Mean Platelet Volume 9.1 fL (7.4-10.4); Platelet Count 193 10x3/uL (130-400); Protein, Total 5.6 g/dL (5.8-8.1); RBC Distribution Width 20.5 % (11.5-14.5); Red Blood Cell (RBC) Count 2.83 mill/uL (4.20-5.40); Sodium 127 mmol/L (136-145)
[2024-06-16 06:53] LABS: Anisocytosis SLIGHT = 6-15 cells HPF (0-5); Band 7 % (5-11); Burr Cells SLIGHT = 2-5 cells HPF (0-1); Dohle Bodies SLIGHT; Elliptocytes SLIGHT = 2-5 cells HPF (0-1); Lymphocytes 4 % (21-51); Monocytes 1 % (0-10); Neutrophil 88 % (42-75); Platelet Adequacy Comment Platelets Normal; Polychromasia SLIGHT = 2-3 cells HPF (0-2); Tear Drops SLIGHT = 2-5 cells HPF (0-1); Toxic Granulation SLIGHT
[2024-06-16] MEDS: Budesonide 0.25 MG/2 ML NEB INH SCH (06:56)
[2024-06-16] MEDS: Mometasone 100 MCG HFA INHALER (RT USE) INH SCH (06:56)
[2024-06-16] MEDS: Sodium Bicarb 50 MEQ/50 ML Abboject 8.4% SYRINGE IVP SCH (07:18)
[2024-06-16] MEDS: Insulin Regular, Human 100 UNIT/ML 10 ML VIAL IVP SCH (07:18)
[2024-06-16] MEDS: Dextrose 50% Abboject 50 ML SYRINGE SLOW IVP PRN (07:19)
[2024-06-16 09:16] LABS: Albumin 2.4 g/dL (3.4-4.8); Anion Gap 18 mmol/L (10-20); BUN (Urea Nitrogen) 65 mg/dL (9.8-20.1); BUN/Creatinine Ratio 13.49; Calc. Creatinine Clearance 11 mL/min (70-130); Calcium 8.2 mg/dL (7.8-10.44); Carbon Dioxide 16 mmol/L (23-31); Chloride 99 mmol/L (98-107); Estimated GFR 9; Glucose 108 mg/dL (83-110); Phosphorus 5.4 mg/dL (2.3-4.7); Potassium 5.6 mmol/L (3.5-5.1); Sodium 127 mmol/L (136-145)
[2024-06-16] MEDS: Sodium Bicarbonate 150 MEQ in Dextrose 5% in Water 1,000 ML IV SCH (09:54)
[2024-06-16] MEDS: Famotidine 20 MG TAB PO SCH (09:55)
[2024-06-16] MEDS: Famotidine/PF 20 mg/2ml Vial SLOW IVP SCH (09:55)
[2024-06-16] MEDS: Albumin 25% 25 GM (100 mL) BOT IVPB SCH ×2 (09:55→13:59)
[2024-06-16 13:41] LABS: Uric Acid 16.7 mg/dL (2.6-6.0)
[2024-06-16] MEDS: Sodium Polystyrene Sulfonate 15 GM (60 mL) BOT PER TUBE SCH (13:58)
[2024-06-16] MEDS: cefTRIAXone\\ROCEPHIN 2 GM in Sodium Chloride 0.9% 100 ML IVPB SCH (22:47)
[2024-06-17 04:47] LABS: Hematocrit 19.6 % (36.0-47.0); Hemoglobin 6.5 g/dL (12.0-16.0); Mean Corpuscular HGB CONC 33.2 g/dL (32.0-36.0); Mean Corpuscular Hemoglobin 31.4 pg (27.0-31.0); Mean Corpuscular Volume 94.7 fL (78.0-98.0); Mean Platelet Volume 9.5 fL (7.4-10.4); Platelet Count 120 10x3/uL (130-400); RBC Distribution Width 20.6 % (11.5-14.5); Red Blood Cell (RBC) Count 2.07 mill/uL (4.20-5.40)
[2024-06-17 04:59] LABS: Anion Gap 18 mmol/L (10-20); BUN (Urea Nitrogen) 64 mg/dL (9.8-20.1); Calc. Creatinine Clearance 12 mL/min (70-130); Carbon Dioxide 22 mmol/L (23-31); Chloride 97 mmol/L (98-107); Estimated GFR 9; Glucose 112 mg/dL (83-110); Potassium 3.8 mmol/L (3.5-5.1); Sodium 133 mmol/L (136-145)
[2024-06-17 05:22] LABS: Free T4 (Free Thyroxine) 1.01 ng/dL (0.70-1.48); Thyroid Stimulating Hormone 8.7651 uIU/mL (0.35-4.94)
[2024-06-17] MEDS: Sodium Bicarb 50 MEQ/50 ML Abboject 8.4% SYRINGE IVP SCH (05:22)
[2024-06-17] MEDS: Furosemide 40 MG (4 mL) VIAL SLOW IVP SCH (05:22)
[2024-06-17] MEDS: Glycopyrrolate 0.4 MG/ 2 ML VIAL SLOW IVP SCH (05:30)
[2024-06-17 05:34] LABS: Band 6 % (5-11); Dohle Bodies SLIGHT; Elliptocytes SLIGHT = 2-5 cells HPF (0-1); Lymphocytes 9 % (21-51); Metamyelocyte 2 % (0-0); Microcytosis SLIGHT = 6-15 cells HPF (0-5); Monocytes 4 % (0-10); Myelocyte 2 % (0-0); Neutrophil 77 % (42-75); Platelet Adequacy Comment Platelets Decreased; Polychromasia SLIGHT = 2-3 cells HPF (0-2); Toxic Granulation SLIGHT
[2024-06-17] MEDS: GLYCOPYRROLATE/PF 0.2 MG/ML VIAL SLOW IVP SCH (05:49)
[2024-06-17 06:01] LABS: Hematocrit 20.7 % (36.0-47.0); Mean Corpuscular HGB CONC 33.8 g/dL (32.0-36.0); Mean Corpuscular Hemoglobin 31.7 pg (27.0-31.0); Mean Corpuscular Volume 93.7 fL (78.0-98.0); Mean Platelet Volume 9.5 fL (7.4-10.4); Platelet Count 128 10x3/uL (130-400); RBC Distribution Width 20.6 % (11.5-14.5); Red Blood Cell (RBC) Count 2.21 mill/uL (4.20-5.40)
[2024-06-17 06:08] LABS: Anion Gap 18 mmol/L (10-20); BUN (Urea Nitrogen) 64 mg/dL (9.8-20.1); Calc. Creatinine Clearance 12 mL/min (70-130); Carbon Dioxide 24 mmol/L (23-31); Chloride 96 mmol/L (98-107); Estimated GFR 10; Glucose 112 mg/dL (83-110); Potassium 3.9 mmol/L (3.5-5.1); Sodium 134 mmol/L (136-145)
[2024-06-17 06:34] LABS: Band 7 % (5-11); Dohle Bodies SLIGHT; Elliptocytes SLIGHT = 2-5 cells HPF (0-1); Hypochromia SLIGHT = 6-15 cells HPF (0-5); Lymphocytes 11 % (21-51); Metamyelocyte 5 % (0-0); Microcytosis SLIGHT = 6-15 cells HPF (0-5); Monocytes 2 % (0-10); Myelocyte 1 % (0-0); Neutrophil 74 % (42-75); Platelet Adequacy Comment Platelets Decreased; Polychromasia SLIGHT = 2-3 cells HPF (0-2); Target Cells SLIGHT = 2-5 cells HPF (0-1); Toxic Granulation MODERATE
[2024-06-17] MEDS: Levothyroxine 100 MCG SDV IVP SCH (06:50)
[2024-06-17 07:44] VITALS: TEMP 98.1
[2024-06-17] MEDS ORDERED: Febuxostat 40 MG TAB PO SCH (12:00)
[2024-06-17] MEDS ORDERED: Sodium Bicarbonate 50 MEQ in Dextrose 5 %-0.45 % NaCl 1,000 ML IV SCH (12:45)
[2024-06-17] MEDS ORDERED: Lorazepam 2 MG/ML VIAL SLOW IVP PRN (13:52)
[2024-06-17] MEDS ORDERED: Glycopyrrolate 0.4 MG/ 2 ML VIAL SLOW IVP PRN (14:16)
[2024-06-17] MEDS: Scopolamine 1 mg/72 hour Patch TD SCH (14:41)
[2024-06-17 15:39] VITALS: BMI 28.4
[2024-06-17] MEDS: Morphine 2 MG/ML VIAL SLOW IVP PRN (17:16)
[2024-06-19] MEDS ORDERED: FLU (Fluad Triv) TS24-25 (65UP)/MF59C/PF 45 MCG/0.5 ML Syringe IM ONE (09:00)
== END 2024-06-17 17:51 | disposition hospice, inpatient (51) | DRG 871 ==
LOC: ERS 16:24 → IMCU/EMU 21:47
PROVIDERS: ADMIT Student in an Organized Health Care Education/Training Program; ATTEND Internal Medicine
PROC: 3E03329 Introduction of Other Anti-infective into Peripheral Vein, Percutaneous Approach (ICD-10-PCS; principal; 2024-06-15)
PROC: 30233J1 Transfusion of Nonautologous Serum Albumin into Peripheral Vein, Percutaneous Approach (ICD-10-PCS; 2024-06-16)
DX: A41.9 Sepsis, unspecified organism (principal); G93.41 Metabolic encephalopathy; N39.0 Urinary tract infection, site not specified; N17.9 Acute kidney failure, unspecified; E87.1 Hypo-osmolality and hyponatremia; E87.20 Acidosis, unspecified; C90.00 Multiple myeloma not having achieved remission; D84.9 Immunodeficiency, unspecified; R65.20 Severe sepsis without septic shock; E87.5 Hyperkalemia; F03.90 Unspecified dementia, unspecified severity, without behavioral disturbance, psychotic disturbance, mood disturbance, and anxiety; J44.9 Chronic obstructive pulmonary disease, unspecified; Z98.41 Cataract extraction status, right eye; Z98.42 Cataract extraction status, left eye; E03.9 Hypothyroidism, unspecified; N18.30 Chronic kidney disease, stage 3 unspecified; I12.9 Hypertensive chronic kidney disease with stage 1 through stage 4 chronic kidney disease, or unspecified chronic kidney disease; D63.1 Anemia in chronic kidney disease; Z66 Do not resuscitate
CPT/HCPCS: 36415; 51701; 70450; 71045; 72170; 74018; 76700; 80048; 80053; 81001; 82040; 82550; 83605; 83690; 84439; 84443; 84481; 84484; 84550; 85025; 86850; 86900; 86901; 87040; 87086; 87428; 93005; 93976; 94640; 96361; 96365; 96366; 97139; J0613; J0696; J1815; J1940; J2272; J3490; J7070; J7620; J7626; J7999; P9047

== ENCOUNTER 2024-06-17 18:02 | Inpatient (IN) | payer OTHER ==
[2024-06-17] MEDS: Scopolamine 1 mg/72 hour Patch TOP SCH (18:15)
[2024-06-17] MEDS: Morphine 2 MG/ML VIAL SLOW IVP PRN (21:52)
[2024-06-17 22:10] VITALS: BMI 27.3
[2024-06-20] MEDS: Lorazepam 2 MG/ML VIAL SLOW IVP PRN (11:55)
[2024-06-21] MEDS: Morphine 2 MG/ML VIAL SLOW IVP SCH (13:57)
[2024-06-22] MEDS: Morphine 2 MG/ML VIAL SLOW IVP SCH (12:09)
[2024-06-22] MEDS: Lorazepam 2 MG/ML VIAL SLOW IVP SCH (18:12)
[2024-06-23] MEDS: Glycopyrrolate 0.4 MG/ 2 ML VIAL SLOW IVP PRN (05:32)
[2024-06-23] MEDS: Morphine 2 MG/ML VIAL SLOW IVP PRN (06:33)
[2024-06-23] MEDS: Acetaminophen 650 MG Suppository PR SCH (06:35)
[2024-06-23] MEDS: Atropine Sulfate 1% Ophth Soln 5 ml Bottle SL PRN (06:53)
[2024-06-23 07:31] VITALS: BP 66/34; TEMP 101.7
== END 2024-06-23 11:16 | disposition expired | DRG 951 ==
LOC: UNDOADMIN 18:04 → IMCU/EMU 18:04 → SURG B 19:41
PROVIDERS: ADMIT Internal Medicine Nephrology; ATTEND Internal Medicine Nephrology
DX: Z51.5 Encounter for palliative care (principal); N17.9 Acute kidney failure, unspecified; E87.1 Hypo-osmolality and hyponatremia; G93.40 Encephalopathy, unspecified; N30.01 Acute cystitis with hematuria; J44.9 Chronic obstructive pulmonary disease, unspecified; E87.5 Hyperkalemia; N18.30 Chronic kidney disease, stage 3 unspecified; I12.9 Hypertensive chronic kidney disease with stage 1 through stage 4 chronic kidney disease, or unspecified chronic kidney disease; D63.1 Anemia in chronic kidney disease; E86.9 Volume depletion, unspecified; R63.8 Other symptoms and signs concerning food and fluid intake; F03.C0 Unspecified dementia, severe, without behavioral disturbance, psychotic disturbance, mood disturbance, and anxiety; Z66 Do not resuscitate; Z85.79 Personal history of other malignant neoplasms of lymphoid, hematopoietic and related tissues
CPT/HCPCS: J2060; J2272